=== PATIENT | male | born 1960 | race Caucasian/White ===

== ENCOUNTER 2017-04-10 07:37 | Inpatient (IN) | payer BC ==
[~2017-04-10] VITALS: Ht 182.9 cm; Wt 155.6 kg
[2017-04-10] VITALS (10 sets, daily range): BP systolic 128–163; BP diastolic 83–107; PULSE 86–105; TEMP 36.7–37; O2SAT 91–96; Ht 182.9 cm; Wt 155.6 kg
[~2017-04-10 07:37] MED LIST: ALBU1AER9 INH; HYDR-5688 PO; LISI-787 PO
[2017-04-10] MEDS ORDERED: ALBUT/IPRATROP 3MG/0.5MG NEB 3 ML VIAL INH STA (07:56)
[2017-04-10] MEDS ORDERED: SODIUM CHLORIDE 0.9% 1000ML 1,000 ML IV STA (07:56)
[2017-04-10] MEDS ORDERED: AZIT-57 PO (08:02)
--- NOTE | 2017-04-10 08:06 | EMERGENCY ROOM VISIT NOTE ---
History First contact with patient: 07:48 Chief Complaint: COUGH Stated Complaint: FEVER, COUGH, PNEUMONIA Nursing Triage Summary: patient states he has had cough and chest and nasal congestion x1 week. patient states he went to PCP yesterday. x ray done and patient was given a z davide. patient staets he woke up this AM with cough, chest tightness and SOB. hx asthma. patient used inhaler this AM with some relief. patient states he had a low grade fever yesterday. History of Present Illness The patient is a 57 year old male who presents to the Emergency Room with complaints of cough, shortness of breath and chest tightness for the past week. Patient states he started with flu-like symptoms a week ago with cough, congestion, fevers and chills, and some nausea/vomiting. He states his symptoms are getting worse, he saw his PCP yesterday where he had a chest x-ray done and was told he probably had pneumonia, was started on a Z-Davide. He has taken 2 doses of this. He states that he was unable to sleep well last night because every time he would try to lie flat he felt like his throat was closing off and he couldn't breathe, and then would start to have coughing fits and gagging. He states his chest tightness and pain has been getting worse, the pain is throughout, especially along his lower rib cage and worse with coughing , not worse with exertion or taking a deep breath, he has not taken any medications for the pain. Patient does report a history of asthma, which she states is usually triggered by allergies or illness, he has been using his albuterol inhaler with improvement, last use was at 7 AM today. He reports continued low-grade fevers of 99-100 yesterday and this morning. He denies any headaches, neck pain, back pain, dizziness or syncope, abdominal pain, nausea, vomiting, diarrhea, urinary complaints, leg pain or swelling, recent travel, rash. Review of Systems A complete 10 point review of systems was reviewed with the patient with pertinent positives and negatives as per history of present illness. All else were negative. Past Medical/Surgical History Medical Problems: (1) Ankle surgery (2) Asthma exacerbation (3) HTN (hypertension) (4) Nonunion of arthrodesis (5) Obesity (6) Osteoarthritis of subtalar joint (7) PNA (pneumonia) Social History Smoking Status: Former Smoker Drug Use: none Marital Status: Housing Status: lives with family Occupation Status: employed Current/Historical Medications Scheduled Azithromycin (Azithromycin), 1 TAB PO DAILY Lisinopril/Hctz (Zestoretic 20MG/12.5MG), 1 TAB PO QAM Scheduled PRN Hydrocodone/Acetaminophen 5MG/325MG ([place] 5MG/325MG), 1 TABLET PO TID PRN for Pain Allergies Reviewed in chart Physical Exam Vital Signs Date Time Temp Pulse Resp B/P (MAP) Pulse Ox O2 Delivery O2 Flow Rate FiO2 04/10/17 10:12 96 24 95 Nasal Cannula 2.0 04/10/17 09:42 106/82 04/10/17 09:37 96 14 95 04/10/17 09:31 158/115 04/10/17 09:07 98 18 95 04/10/17 09:01 148/79 04/10/17 08:37 108 21 142/89 04/10/17 08:25 91 Nasal Cannula 2.0 04/10/17 08:19 107 04/10/17 08:12 91 Room Air 04/10/17 07:44 36.8 122 152/86 91 Room Air Physical Exam CONSTITUTIONAL: Pleasant and cooperative, mild respiratory distress with labored breathing and slightly tachypneic, but able to speak in full sentences. Diaphoretic. HEENT: Normocephalic, atraumatic. Pupils equal, round and reactive to light, EOMI. TMs normal. Pharynx normal. Tacky mucous membranes. NECK: Supple, full active range of motion without discomfort. RESPIRATORY: Diminished throughout with no wheezing, crackles, rhonchi or stridor heard on auscultation. Labored breathing, but no accessory muscle use. Mild tachypnea. Equal expansion bilaterally. CARDIOVASCULAR: Regular rate and rhythm with no murmurs, rubs or gallops. Normal peripheral perfusion. No edema. GASTROINTESTINAL: Soft, nontender, nondistended, Obese. No palpable masses or HSM. Bowel sounds present in all quadrants. MUSCULOSKELETAL: Full range of motion of all joints without discomfort. No calf tenderness or swelling. INTEGUMENTARY: No rash or other significant dermatologic conditions noted. NEUROLOGIC: Alert and oriented X 4 with normal affect. Cranial nerves II-XII grossly intact. No focal neurologic deficits noted. Normal speech, normal gait observed. Medical Decision & Procedures ER Provider Diagnostic Interpretation: CHEST 2 VIEWS ROUTINE CLINICAL HISTORY: SOB, cough x 1 weeks, fevers, eval PNA. COMPARISON STUDY: Chest CT May 19, 2013 and chest radiograph September 20, 2013. FINDINGS: There is mild elevation of the right hemidiaphragm. Lung volumes are slightly diminished. There is no pneumothorax or pleural effusion. There is no evidence for pleural edema. Lateral view demonstrates opacity projecting over the thoracic spine. There is mild lower lung predominant reticulonodular interstitial thickening. Cardiac size is normal. Mediastinal contours are unremarkable. IMPRESSION: Lower lung predominant reticulonodular interstitial thickening with increased opacity projecting over the thoracic spine on lateral projection. The findings favor an infectious process such as bronchiolitis or bronchopneumonia. Radiographic follow up to ensure resolution is recommended. Laboratory Results 04/10/17 08:05 Red Blood Count 4.37, Mean Corpuscular Volume 92.0, Mean Corpuscular Hemoglobin 30.9, Mean Corpuscular Hemoglobin Concent 33.6, Mean Platelet Volume 11.7, Neutrophils (%) (Auto) 76.0, Lymphocytes (%) (Auto) 11.7, Monocytes (%) (Auto) 10.5, Eosinophils (%) (Auto) 1.3, Basophils (%) (Auto) 0.2, Neutrophils # (Auto ) 6.68, Lymphocytes # (Auto) 1.03, Monocytes # (Auto) 0.92, Eosinophils # (Auto ) 0.11, Basophils # (Auto) 0.02 04/10/17 08:05 Test 04/10/17 08:05 04/10/17 09:55 White Blood Count 8.79 K/uL (4.8-10.8) Red Blood Count 4.37 M/uL (4.7-6.1) Hemoglobin 13.5 g/dL (14.0-18.0) Hematocrit 40.2 % (42-52) Mean Corpuscular Volume 92.0 fL (80-100) Mean Corpuscular Hemoglobin 30.9 pg (25-34) Mean Corpuscular Hemoglobin Concent 33.6 g/dl (32-36) Platelet Count 134 K/uL (130-400) Mean Platelet Volume 11.7 fL (7.4-10.4) Neutrophils (%) (Auto) 76.0 % Lymphocytes (%) (Auto) 11.7 % Monocytes (%) (Auto) 10.5 % Eosinophils (%) (Auto) 1.3 % Basophils (%) (Auto) 0.2 % Neutrophils # (Auto) 6.68 K/uL (1.4-6.5) Lymphocytes # (Auto) 1.03 K/uL (1.2-3.4) Monocytes # (Auto) 0.92 K/uL (0.11-0.59) Eosinophils # (Auto) 0.11 K/uL (0-0.5) Basophils # (Auto) 0.02 K/uL (0-0.2) RDW Standard Deviation 45.3 fL (36.4-46.3) RDW Coefficient of Variation 13.4 % (11.5-14.5) Immature Granulocyte % (Auto) 0.3 % Immature Granulocyte # (Auto) 0.03 K/uL (0.00-0.02) Anion Gap 6.0 mmol/L (3-11) Est Creatinine Clear Calc Drug Dose 137.1 ml/min Estimated GFR () 106.6 Estimated GFR (Non- 92.0 BUN/Creatinine Ratio 15.0 (10-20) Calcium Level 8.7 mg/dl (8.5-10.1) Total Bilirubin 0.7 mg/dl (0.2-1) Aspartate Amino Transf (AST/SGOT) 16 U/L (15-37) Alanine Aminotransferase (ALT/SGPT) 29 U/L (12-78) Alkaline Phosphatase 55 U/L (45-117) Troponin I < 0.015 ng/ml (0-0.045) Total Protein 7.5 gm/dl (6.4-8.2) Albumin 3.5 gm/dl (3.4-5.0) Globulin 4.0 gm/dl (2.5-4.0) Albumin/Globulin Ratio 0.9 (0.9-2) Urine Color DK YELLOW Urine Appearance CLEAR (CLEAR) Urine pH 5.5 (4.5-7.5) Urine Specific [place] 1.027 (1.000-1.030) Urine Protein 1+ (NEG) Urine Glucose (UA) NEG (NEG) Urine Ketones NEG (NEG) Urine Occult Blood TRACE (NEG) Urine Nitrite NEG (NEG) Urine Bilirubin NEG (NEG) Urine Urobilinogen NEG (NEG) Urine Leukocyte Esterase TRACE (NEG) Urine WBC (Auto) 1-5 /hpf (0-5) Urine RBC (Auto) 0-4 /hpf (0-4) Urine Hyaline Casts (Auto) 1-5 /lpf (0-5) Urine Epithelial Cells (Auto) 10-20 /lpf (0-5) Urine Bacteria (Auto) NEG (NEG) Medications Administered Medications (Trade) Dose Ordered Sig/Senthil Route Start Time Stop Time Status Last Admin Dose Admin Albuterol/ Ipratropium (Duoneb) 3 ml NOW STAT INH 04/10/17 07:56 04/10/17 08:00 DC 04/10/17 07:56 3 ML Sodium Chloride 1,000 ml @ 999 mls/hr Q1H1M STAT IV 04/10/17 07:56 04/10/17 08:56 DC 04/10/17 07:56 999 MLS/HR Ceftriaxone Sodium (Rocephin Inj) 1 gm NOW STAT IV 04/10/17 09:42 04/10/17 09:45 DC 04/10/17 09:42 1 GM Methylprednisolone Sodium Succinate (Solu-Medrol IV) 125 mg NOW STAT IV 04/10/17 09:52 04/10/17 09:54 DC 04/10/17 10:00 125 MG Albuterol/ Ipratropium (Duoneb) 12 ml ONE ONCE INH 04/10/17 10:00 04/10/17 10:01 DC 04/10/17 10:12 12 ML Acetaminophen/ Hydrocodone Bitart ([place] 5/325 Tab) 1 tab NOW STAT PO 04/10/17 09:54 04/10/17 09:55 DC 04/10/17 10:01 1 TAB ECG Indication: chest pain, SOB/dyspnea Rate (beats per minute): 111 Rhythm: sinus tachycardia Findings: no acute ischemic change, no ectopy Change: no significant change (when compared to EKG from 04/13/2013) Medical Decision CC: Patient presenting with complaint of cough, shortness of breath, chest tightness Interpretation of Labs: No leukocytosis, mild anemia, no significant electrolyte abnormalities, normal renal function, normal liver enzymes. Normal coags. Negative troponin. UA appears contaminated, not suspicious for infection. Differential Diagnosis: Includes, but not limited to viral URI, bronchitis, pneumonia, pulmonary edema, pleural effusion, pneumothorax, PE, asthma/COPD exacerbation, CHF exacerbation, ACS, among others Medication Reconciliation: I attest that I have personally reviewed the patient' s current medication list. Vital signs review: I reviewed the patient's vital signs and interpret them as follows: T: Afebrile; BP: Hypertensive; HR: Tachycardic; RR: Tachypneic; Pulse Ox: Hypoxic on room air, placed on 2 L cannula and improved to 95%. Blood pressure screening: The patient was found to have an elevated blood pressure and was referred to the inpatient team for further treatment. Summary: Patient was evaluated at bedside, history and physical exam performed. Patient is alert and oriented, in no significant distress, but does appear mildly labored with his breathing. He is noted to be tachycardic, tachypneic, and hypoxic on initial vital signs. Patient noted to drop his oxygen saturation below 90% multiple times, his placed on nasal cannula with improvement. Lungs sounds on initial exam are diminished throughout, no wheezes, rhonchi, or crackles heard. EKG reviewed at bedside, sinus tachycardia with no acute ischemic changes noted. Orders were placed at bedside for labs, fluids for hydration, chest x-ray to evaluate for pneumonia. Patient discussed with Dr. Garcia, who agrees with my assessment and plan. Labs reviewed as above, no significant abnormalities. Chest x-ray consistent with pneumonia. Reassessed the patient after DuoNeb, he is moving better air and now has diffuse expiratory wheezing. He still reports shortness of breath. Nursing has also reported some episodes of hypoxia down to 88% on room air, he was placed on 2 L nasal cannula. IV Solu-Medrol and hour-long DuoNeb for continued treatment of suspected asthma/ COPD exacerbation secondary to the pneumonia. IV Rocephin ordered for additional coverage of community acquired pneumonia. I spoke over the phone with Dr. Espinoza, hospitalist, who agrees to evaluate patient for admission. Patient reassessed multiple times throughout ED stay, he is feeling slightly improved after nebulizer treatments and being placed on oxygen, his sats are now 94-95%. I discussed all results and plan for admission for further treatment, the patient was agreeable to this plan. Patient stable at time of admission. Head Trauma GCS Score: 15 Medication Reconcilliation Current Medication List: was personally reviewed by me Blood Pressure Screening Patient's blood pressure: Elevated blood pressure Impression Primary Impression: Community acquired pneumonia Additional Impression: Hypoxia Departure Information Dispostion Admitted as an inpatient Condition FAIR Referrals Spencer Teague M.D. (PCP) Patient Instructions My [facility] Problem Qualifiers Primary Impression: Community acquired pneumonia Laterality: unspecified laterality Qualified Codes: J18.9 - Pneumonia, unspecified organism
[2017-04-10 08:25] LABS: BASO % 0.2 %; BASO ABS # 0.02 K/uL (0-0.2); COMPLETE YES; EOS % 1.3 %; HEMATOCRIT 40.2 % (42-52); IG% 0.3 %; LYMPH % 11.7 %; LYMPH ABS # 1.03 K/uL (1.2-3.4); MEAN CORPUSCULAR HEMOGLOBIN 30.9 pg (25-34); MEAN CORPUSCULAR HGB CONC 33.6 g/dl (32-36); MEAN PLATELET VOLUME 11.7 fL (7.4-10.4); MONO % 10.5 %; PLATELET COUNT 134 K/uL (130-400); RED BLOOD COUNT 4.37 M/uL (4.7-6.1); WHITE BLOOD COUNT 8.79 K/uL (4.8-10.8)
[2017-04-10 08:42] LABS: ALT/SGPT 29 U/L (12-78); BLOOD UREA NITROGEN 14 mg/dl (7-18); CALCIUM 8.7 mg/dl (8.5-10.1); CARBON DIOXIDE 28 mmol/L (21-32); CHLORIDE 102 mmol/L (98-107); CREATININE 0.92 mg/dl (0.60-1.40); GLUCOSE 140 mg/dl (70-99); POTASSIUM 3.6 mmol/L (3.5-5.1); SODIUM 136 mmol/L (136-145)
--- NOTE | 2017-04-10 08:43 | DIAGNOSTIC IMAGING REPORT ---
CHEST 2 VIEWS ROUTINE CLINICAL HISTORY: SOB, cough x 1 weeks, fevers, eval PNA. COMPARISON STUDY: Chest CT May 19, 2013 and chest radiograph September 20, 2013. FINDINGS: There is mild elevation of the right hemidiaphragm. Lung volumes are slightly diminished. There is no pneumothorax or pleural effusion. There is no evidence for pleural edema. Lateral view demonstrates opacity projecting over the thoracic spine. There is mild lower lung predominant reticulonodular interstitial thickening. Cardiac size is normal. Mediastinal contours are unremarkable. IMPRESSION: Lower lung predominant reticulonodular interstitial thickening with increased opacity projecting over the thoracic spine on lateral projection. The findings favor an infectious process such as bronchiolitis or bronchopneumonia. Radiographic follow up to ensure resolution is recommended. Electronically signed by: Jayson Munoz M.D. 04/10/2017 8:42 AM Dictated Date/Time: 04/10/2017 8:35 AM
[2017-04-10 08:47] LABS: ALB/GLOB RATIO 0.9 (0.9-2); ALKALINE PHOSPHATASE 55 U/L (45-117); AST/SGOT 16 U/L (15-37)
[2017-04-10] MEDS ORDERED: CEFTRIAXONE SOD INJ 1 GM ADDVIAL IV STA (09:42)
[2017-04-10] MEDS ORDERED: METHYLPREDNISOLONE 125 MG VIAL IV STA (09:52)
[2017-04-10] MEDS ORDERED: HYDROCODONE/ACETAMOPHEN 5/325MG TAB PO STA (09:54)
[2017-04-10] MEDS ORDERED: ALBUT/IPRATROP 3MG/0.5MG NEB 3 ML VIAL INH ONE (10:00)
[2017-04-10 10:19] LABS: URINE APPEARANCE CLEAR (CLEAR); URINE COLOR DK YELLOW; URINE NITRITE NEG (NEG); URINE PH 5.5 (4.5-7.5); URINE SPECIFIC GRAVITY 1.027 (1.000-1.030); UROBILINOGEN NEG (NEG)
[2017-04-10 10:22] LABS: MANUAL MICROSCOPIC REQUIRED? NO; REVIEW REQ? NO
[2017-04-10 10:23] LABS: URINE BILIRUBIN NEG (NEG)
[2017-04-10] MEDS ORDERED: ONDANSETRON INJ 2 MG/ML 2 ML VIAL IV PRN (10:45)
[2017-04-10] MEDS ORDERED: ACETAMINOPHEN 325 MG TAB PO PRN (10:45)
[2017-04-10] MEDS ORDERED: SODIUM CHLORIDE 0.9% 1000ML 1,000 ML IV SCH (11:00)
[2017-04-10 13:20] LABS: PROTHROMBIN TIME (PATIENT) 10.6 SECONDS (9.0-12.0)
[2017-04-10] MEDS: AZITHROMYCIN IV 500 MG in DEXTROSE 5% 250ML 250 ML IV SCH (13:42)
[2017-04-10] MEDS: LISINOPRIL/HCTZ 20/12.5MG TAB PO SCH (13:42)
[2017-04-10] MEDS: LEVALBUTEROL 1.25MG/0.5ML NEB INH SCH ×2 (15:00→19:32)
[2017-04-10] MEDS: IPRATROPIUM BROMIDE NEB SOLN 0.02% 2.5 ML VIAL INH SCH ×2 (15:00→19:32)
[2017-04-10] MEDS ORDERED: LEVALBUTEROL/IPRATROPIUM NEB INH SCH (15:00)
[2017-04-10] MEDS ORDERED: HYDROCODONE/ACETAMOPHEN 5/325MG TAB ONE (16:41)
[2017-04-10] MEDS: ENOXAPARIN 40 MG/0.4 ML SYR SC SCH (16:44)
[2017-04-10] MEDS: METHYLPREDNISOLONE IV 40 MG in SYRINGE 0 ML IV SCH (17:31)
--- NOTE | 2017-04-10 18:17 | History and Physical ---
History & Physical Date & Time of Service: Apr 10, 2017 at 11:00 Chief Complaint: Asthma Exacerbation, Pna Primary Care Physician: Spencer Teague M.D. History of Present Illness Source: patient, clinic records, hospital records This is a 57yo M with a PMH of asthma, HTN, chronic back pain who presents with worsening SOB x 1 week. Last week, patient started to have rhinorrhea, nasal congestion and some SOB but it has progressed throughout the week. Is associated with a productive cough with yellow sputum and a low grade fever. Patient has a history of asthma but states that he only needs his inhaler when he has a URI or allergy triggers. Is currently SOB at rest. Went to see PCP yesterday and was diagnosed with CAP and started on a Z-pack. [place] significantly more SOB this morning and came to ED for further evaluation. Was found to have an O2 saturation of 88% upon arrival but now in high 90s on 2L NC. Does not require O2 at home. Former smoker who quit 4 months ago. + sick contacts. Denies history of CHF. Past Medical/Surgical History Medical Problems: (1) HTN (hypertension) Status: Chronic (2) Obesity Status: Chronic (3) Osteoarthritis of subtalar joint Status: Resolved Family History Non-contributory Social History Smoking Status: Former Smoker (quit 4 mo ago) Alcohol Use: socially Drug Use: none Marital Status: Occupational Status: employed Multi-Drug Resistant Organisms History of MDRO: No Allergies Coded Allergies: Morphine (Unverified Allergy, Unknown, HEADACHE, 09/07/15) Home Medications Scheduled Azithromycin (Azithromycin), 500 MG PO QAM Lisinopril/Hctz (Zestoretic 20MG/12.5MG), 1 TAB PO QAM Prednisone (Prednisone), 20 MG PO UD Scheduled PRN Hydrocodone/Acetaminophen 5MG/325MG ([place] 5MG/325MG), 1 TABLET PO TID PRN for Pain Review of Systems Ten systems reviewed and negative except as noted in the HPI. Physical Exam Vital Signs Date Time Temp Pulse Resp B/P (MAP) Pulse Ox O2 Delivery O2 Flow Rate FiO2 04/10/17 16:16 93 Nasal Cannula 2.0 04/10/17 15:33 94 20 93 Nasal Cannula 2.0 04/10/17 14:47 37.0 86 18 128/83 (98) 93 Nasal Cannula 2.0 04/10/17 12:00 93 Nasal Cannula 2.0 04/10/17 11:48 37.0 105 16 156/88 93 Nasal Cannula 2.0 04/10/17 11:09 92 20 125/79 99 Nebulizer 8.0 04/10/17 10:12 96 24 95 Nasal Cannula 2.0 04/10/17 09:42 106/82 04/10/17 09:37 96 14 95 04/10/17 09:31 158/115 04/10/17 09:07 98 18 95 04/10/17 09:01 148/79 04/10/17 08:37 108 21 142/89 04/10/17 08:25 91 Nasal Cannula 2.0 04/10/17 08:19 107 04/10/17 08:12 91 Room Air 04/10/17 07:44 36.8 122 152/86 91 Room Air General Appearance: + mild distress, + obese, + pertinent finding (breathing comfortably on NC O2) Eyes: normal inspection, PERRL, sclerae normal ENT: pharynx normal (zoran mucous membrane ), + nasal congestion Neck: supple, no JVD, trachea midline Respiratory/Chest: chest non-tender, no respiratory distress, no accessory muscle use, + crackles (bibasilar crackles ), + wheezing (Diffuse expiratory wheezes) Cardiovascular: regular rate, rhythm, no murmur, normal peripheral pulses Abdomen/GI: non tender, soft, no organomegaly Extremities/Musculoskelatal: normal inspection, no calf tenderness, no pedal edema Neurologic/Psych: no motor/sensory deficits, alert, normal mood/affect, oriented x 3 Skin: normal color, warm/dry Diagnostics Laboratory Results Results Past 24 Hours Test 04/10/17 08:05 04/10/17 09:55 04/10/17 12:44 Range/Units White Blood Count 8.79 4.8-10.8 K/uL Red Blood Count 4.37 4.7-6.1 M/uL Hemoglobin 13.5 14.0-18.0 g/dL Hematocrit 40.2 42-52 % Mean Corpuscular Volume 92.0 80-100 fL Mean Corpuscular Hemoglobin 30.9 25-34 pg Mean Corpuscular Hemoglobin Concent 33.6 32-36 g/dl Platelet Count 134 130-400 K/uL Mean Platelet Volume 11.7 7.4-10.4 fL Neutrophils (%) (Auto) 76.0 % Lymphocytes (%) (Auto) 11.7 % Monocytes (%) (Auto) 10.5 % Eosinophils (%) (Auto) 1.3 % Basophils (%) (Auto) 0.2 % Neutrophils # (Auto) 6.68 1.4-6.5 K/uL Lymphocytes # (Auto) 1.03 1.2-3.4 K/uL Monocytes # (Auto) 0.92 0.11-0.59 K/uL Eosinophils # (Auto) 0.11 0-0.5 K/uL Basophils # (Auto) 0.02 0-0.2 K/uL RDW Standard Deviation 45.3 36.4-46.3 fL RDW Coefficient of Variation 13.4 11.5-14.5 % Immature Granulocyte % (Auto) 0.3 % Immature Granulocyte # (Auto) 0.03 0.00-0.02 K/uL Sodium Level 136 136-145 mmol/L Potassium Level 3.6 3.5-5.1 mmol/L Chloride Level 102 98-107 mmol/L Carbon Dioxide Level 28 21-32 mmol/L Anion Gap 6.0 3-11 mmol/L Blood Urea Nitrogen 14 7-18 mg/dl Creatinine 0.92 0.60-1.40 mg/dl Est Creatinine Clear Calc Drug Dose 137.1 ml/min Estimated GFR () 106.6 Estimated GFR (Non- 92.0 BUN/Creatinine Ratio 15.0 10-20 Random Glucose 140 70-99 mg/dl Calcium Level 8.7 8.5-10.1 mg/dl Total Bilirubin 0.7 0.2-1 mg/dl Aspartate Amino Transf (AST/SGOT) 16 15-37 U/L Alanine Aminotransferase (ALT/SGPT) 29 12-78 U/L Alkaline Phosphatase 55 45-117 U/L Troponin I < 0.015 0-0.045 ng/ml Total Protein 7.5 6.4-8.2 gm/dl Albumin 3.5 3.4-5.0 gm/dl Globulin 4.0 2.5-4.0 gm/dl Albumin/Globulin Ratio 0.9 0.9-2 Urine Color DK YELLOW Urine Appearance CLEAR CLEAR Urine pH 5.5 4.5-7.5 Urine Specific [place] 1.027 1.000-1.030 Urine Protein 1+ NEG Urine Glucose (UA) NEG NEG Urine Ketones NEG NEG Urine Occult Blood TRACE NEG Urine Nitrite NEG NEG Urine Bilirubin NEG NEG Urine Urobilinogen NEG NEG Urine Leukocyte Esterase TRACE NEG Urine WBC (Auto) 1-5 0-5 /hpf Urine RBC (Auto) 0-4 0-4 /hpf Urine Hyaline Casts (Auto) 1-5 0-5 /lpf Urine Epithelial Cells (Auto) 10-20 0-5 /lpf Urine Bacteria (Auto) NEG NEG Prothrombin Time 10.6 9.0-12.0 SECONDS Prothromb Time International Ratio 1.0 0.9-1.1 Microbiology Results 04/10/17 Blood Culture, Received Pending 04/10/17 Blood Culture, Received Pending Diagnostic Radiology CXR: IMPRESSION: Lower lung predominant reticulonodular interstitial thickening with increased opacity projecting over the thoracic spine on lateral projection. The findings favor an infectious process such as bronchiolitis or bronchopneumonia. Radiographic follow up to ensure resolution is recommended. EKG Sinus tachycardia Otherwise normal ECG Impression Assessment and Plan This is a 57yo M with a PMH of asthma, HTN, chronic back pain who presents with worsening SOB x 1 week. Acute hypoxic respiratory failure: -2/2 CAP and asthma -Requiring 2L [place] O2 now, no home O2 -O2 supplementation -Monitor on tele CAP, asthma exacerbation: -SOB, productive cough, +sick contacts -Expiratory wheezes, bibasilar crackles on lung exam -Leukocytosis of 13.5 -CXR with increased lower lung opacity over the thoracic spine on lateral projection -Rocephin, azithromycin -IV solu-medrol 40mg Q8 -Xopenex nebs -IVF resuscitation HTN: -Cont home dose lisinopril/hctz -Low Na diet Degenerative disc disease, chronic back pain: -Has pain mgmt agreement with PCP -Continue home vicodin DVT Ppx: Lovenox Code status: FULL PCP: [facility] Dispo: Plan to return home once medically stable Patient seen in collaboration with Dr. Portillo. Please see addendum. Attending Addendum Pt was seen and examined. Agreed with Hilda CONWAY exam, assessment and plan. 57yo M with a PMH of asthma, HTN, chronic back pain who presents with worsening SOB. CXR done in the ER showed lower lung predominant reticulonodular interstitial thickening with increased opacity projecting over the thoracic spine on lateral projection. Will starting on rocephin and zithromax. will get blood cx and sputum cx and check for flu. continue monitor CBC. Please refer to [facility] CONWAY documentation for other problems. Klever Portillo MD Level of Care Telemetry Advanced Directives Existing Living Will: No Existing Power of Drying Oven Attendant: No Resuscitation Status FULL RESUSCITATION VTE Prophylaxis VTE Risk Assessment Done? Y/N: Yes Risk Level: Low Given or contraindicated: Enoxaparin (Lovenox)SQ Social Service Consult None Apply
[2017-04-10] MEDS: HYDROCODONE/ACETAMOPHEN 5/325MG TAB PO PRN (23:27)
[2017-04-11] VITALS (14 sets, daily range): BP systolic 127–165; BP diastolic 74–109; PULSE 82–103; TEMP 36.5–37.1; O2SAT 91–95
[2017-04-11] MEDS ORDERED: CLONIDINE HCL 0.1 MG TAB PO PRN (00:30)
[2017-04-11] MEDS: ZOLPIDEM TARTRATE 5 MG TAB PO PRN ×2 (00:49→23:26)
[2017-04-11] MEDS: METHYLPREDNISOLONE IV 40 MG in SYRINGE 0 ML IV SCH ×3 (00:49→18:27)
[2017-04-11] MEDS: IPRATROPIUM BROMIDE NEB SOLN 0.02% 2.5 ML VIAL INH SCH ×3 (01:31→14:03)
[2017-04-11] MEDS: LEVALBUTEROL 1.25MG/0.5ML NEB INH SCH ×3 (01:31→14:03)
[2017-04-11 06:21] LABS: HEMATOCRIT 40.4 % (42-52); MEAN CELL VOLUME 91.8 fL (80-100); MEAN CORPUSCULAR HEMOGLOBIN 30.9 pg (25-34); MEAN CORPUSCULAR HGB CONC 33.7 g/dl (32-36); MEAN PLATELET VOLUME 11.9 fL (7.4-10.4); PLATELET COUNT 181 K/uL (130-400); WHITE BLOOD COUNT 13.13 K/uL (4.8-10.8)
[2017-04-11 07:05] LABS: BUN/CREATININE RATIO 20.6 (10-20); CALCIUM 8.6 mg/dl (8.5-10.1); CREATININE 0.87 mg/dl (0.60-1.40); POTASSIUM 3.8 mmol/L (3.5-5.1)
[2017-04-11] MEDS: LISINOPRIL/HCTZ 20/12.5MG TAB PO SCH (07:40)
[2017-04-11] MEDS: HYDROCODONE/ACETAMOPHEN 5/325MG TAB PO PRN ×3 (07:41→22:19)
[2017-04-11 07:52] LABS: ESTIMATED AVERAGE GLUCOSE 114 mg/dl; HA1C FLAG Normal (Normal)
[2017-04-11] MEDS ORDERED: NURSING VERBAL MED ORDER ONE (10:15)
--- NOTE | 2017-04-11 10:24 | Progress Note ---
Medicine Progress Note Date & Time of Visit: Apr 11, 2017 at 10:05. Subjective Pt was seen and examined Sitting in bed with no distress Pt said that he is feeling much better today He said that his breathing feels much better Pt wants to go home today Denies any chest pain, palpitation and Dizziness Objective Last 8 Hrs Date Time Temp Pulse Resp B/P (MAP) Pulse Ox O2 Delivery O2 Flow Rate FiO2 04/11/17 09:20 94 Room Air 04/11/17 07:08 37.1 82 20 127/74 (91) 95 Room Air 04/11/17 07:05 82 18 93 Room Air 04/11/17 04:31 36.6 97 18 165/109 (127) 91 Room Air 04/11/17 04:00 93 Nasal Cannula 2.0 Physical Exam: General- No acute distress Head- atraumatic Eyes- PERRL, EOMI ENT- oropharynx clear Neck- supple, no JVD Lungs- Coarse BS Heart- regular rhythm Abdomen- normal bowel sounds, soft Extremities- no calf tenderness Neuro- alert, oriented x 3; PERRL, EOMI; no facial palsy Skin- warm & dry Laboratory Results: Last 24 Hours Test 04/10/17 12:44 04/11/17 05:31 Prothrombin Time 10.6 SECONDS Prothromb Time International Ratio 1.0 White Blood Count 13.13 K/uL Red Blood Count 4.40 M/uL Hemoglobin 13.6 g/dL Hematocrit 40.4 % Mean Corpuscular Volume 91.8 fL Mean Corpuscular Hemoglobin 30.9 pg Mean Corpuscular Hemoglobin Concent 33.7 g/dl RDW Standard Deviation 44.9 fL RDW Coefficient of Variation 13.3 % Platelet Count 181 K/uL Mean Platelet Volume 11.9 fL Sodium Level 137 mmol/L Potassium Level 3.8 mmol/L Chloride Level 103 mmol/L Carbon Dioxide Level 27 mmol/L Anion Gap 7.0 mmol/L Blood Urea Nitrogen 18 mg/dl Creatinine 0.87 mg/dl Est Creatinine Clear Calc Drug Dose 144.2 ml/min Estimated GFR () 111.0 Estimated GFR (Non- 95.8 BUN/Creatinine Ratio 20.6 Random Glucose 188 mg/dl Estimated Average Glucose 114 mg/dl Hemoglobin A1c 5.6 % Calcium Level 8.6 mg/dl Date/Time Source Procedure Growth Status 04/10/17 11:14 Blood Blood Culture Pending Received 04/10/17 11:09 Blood Blood Culture Pending Received Assessment & Plan Acute hypoxic respiratory failure Possible related to CAP and asthma CXR showed lower lung predominant reticulonodular interstitial thickening with increased opacity projecting over the thoracic spine on lateral projection On IV rocephin and Zithromax Continue supplement O2 Continue monitor solumedrol IV 40mg q8h Continue breathing treatment Continue monitor HTN: Cont home dose lisinopril/hctz Continue monitor BP Degenerative disc disease, chronic back pain: Has pain mgmt agreement with PCP Continue home vicodin DVT Ppx: Lovenox Code status: FULL Current Inpatient Medications: Current Inpatient Medications Medications (Trade) Dose Ordered Sig/Senthil Route Start Time Stop Time Status Last Admin Dose Admin Enoxaparin Sodium (Lovenox Inj) 40 mg Q24H SC 04/10/17 16:00 05/10/17 15:59 04/10/17 16:44 40 MG Acetaminophen (Tylenol Tab) 650 mg Q4H PRN PO 04/10/17 10:45 05/10/17 10:44 Ondansetron HCl (Zofran Inj) 4 mg Q6H PRN IV 04/10/17 10:45 05/10/17 10:44 Ceftriaxone Sodium 2000 mg/ Dextrose 70 ml @ 100 mls/hr Q24H IV 04/11/17 18:00 04/18/17 17:59 Azithromycin 500 mg/Dextrose 255 ml @ 250 mls/hr Q24H IV 04/10/17 13:00 04/15/17 12:59 04/10/17 13:42 250 MLS/HR Methylprednisolone Sodium Succinate 40 mg/Syringe 0.64 ml @ 1.5 mls/min Q8H IV 04/10/17 18:00 05/10/17 17:59 04/11/17 09:36 1.5 MLS/MIN Acetaminophen/ Hydrocodone Bitart ([place] 5/325 Tab) 1 tab TID PRN PO 04/10/17 18:00 04/24/17 17:59 04/11/17 07:41 1 TAB HCTZ/Lisinopril (Prinzide 20-12.5MG Tab) 1 tab QAM PO 04/10/17 11:00 05/10/17 10:59 12/21/17 07:40 1 TAB Ipratropium [place] (Atrovent 0.02% 0.5MG/2.5ML Neb) 0.5 mg Q6R INH 04/10/17 15:00 05/10/17 14:59 04/11/17 07:02 0.5 MG Levalbuterol (Xopenex 1.25MG/ 0.5ML Neb) 1.25 mg Q6R INH 04/10/17 15:00 05/10/17 14:59 04/11/17 07:02 1.25 MG Zolpidem Tartrate (Ambien Tab) 5 mg HS PRN PO 04/11/17 00:15 05/11/17 00:14 04/11/17 00:49 5 MG Clonidine HCl (Catapres Tab) 0.1 mg Q4H PRN PO 04/11/17 00:30 05/11/17 00:29 04/11/17 00:49 0.1 MG
[2017-04-11] MEDS: CEFTRIAXONE SOD INJ 1 GM in DEXTROSE 5% ADD-VANTAGE 50ML 50 ML IV SCH (10:34)
[2017-04-11] MEDS: AZITHROMYCIN IV 500 MG in DEXTROSE 5% 250ML 250 ML IV SCH (13:02)
[2017-04-11] MEDS: ENOXAPARIN 40 MG/0.4 ML SYR SC SCH (16:14)
[2017-04-11] MEDS ORDERED: CEFTRIAXONE SOD INJ 2,000 MG in DEXTROSE 5% 50ML 50 ML IV SCH (18:00)
[2017-04-12] MEDS: METHYLPREDNISOLONE IV 40 MG in SYRINGE 0 ML IV SCH ×2 (02:21→09:35)
[2017-04-12] MEDS: HYDROCODONE/ACETAMOPHEN 5/325MG TAB PO PRN (06:39)
[2017-04-12 07:59] VITALS: BP 135/83; PULSE 80; TEMP 36.6; O2SAT 93
[2017-04-12] MEDS: LISINOPRIL/HCTZ 20/12.5MG TAB PO SCH (08:24)
[2017-04-12] MEDS: CEFTRIAXONE SOD INJ 1 GM in DEXTROSE 5% ADD-VANTAGE 50ML 50 ML IV SCH (09:35)
[2017-04-12] MEDS ORDERED: AZITHROMYCIN 250 MG TAB PO ONE (11:25)
--- NOTE | 2017-04-12 11:40 | Progress Note ---
Medicine Progress Note Date & Time of Visit: Apr 12, 2017 at 11:27. Subjective Pt was seen and examined Sitting in chair with no distress Pt said that he feels much better today He said that his breathing feels better Pt said that he is ready to go home Denies any chest pain, palpitation, dizziness and SOB Objective Last 8 Hrs Date Time Temp Pulse Resp B/P (MAP) Pulse Ox O2 Delivery O2 Flow Rate FiO2 04/12/17 08:00 Room Air 04/12/17 07:59 36.6 80 18 135/83 (100) 93 Room Air Physical Exam: General- No acute distress Head- atraumatic Eyes- PERRL, EOMI ENT- oropharynx clear Neck- supple, no JVD Lungs- No wheezing Heart- regular rhythm Abdomen- normal bowel sounds, soft Extremities- no calf tenderness Neuro- alert, oriented x 3; PERRL, EOMI; no facial palsy Skin- warm & dry Assessment & Plan Acute hypoxic respiratory failure Possible related to CAP and asthma CXR showed lower lung predominant reticulonodular interstitial thickening with increased opacity projecting over the thoracic spine on lateral projection On IV Rocephin day 3 Received 2 days of IV Zithromax, then changed to oral Zithromax today Continue supplement O2 Will change solumedrol to oral prednisone blood cx no growth Refused flu test Sputum cx pending Continue breathing treatment Continue monitor HTN: Cont home dose lisinopril/hctz Continue monitor BP Degenerative disc disease, chronic back pain: Has pain mgmt agreement with PCP Continue home vicodin DVT Ppx: Lovenox Code status: FULL Disposition Follow up with your primary care provider Dr. Teague on 04/18 @ 12:30 PM Current Inpatient Medications: Current Inpatient Medications Medications (Trade) Dose Ordered Sig/Senthil Route Start Time Stop Time Status Last Admin Dose Admin Enoxaparin Sodium (Lovenox Inj) 40 mg Q24H SC 04/10/17 16:00 05/10/17 15:59 04/11/17 16:14 40 MG Acetaminophen (Tylenol Tab) 650 mg Q4H PRN PO 04/10/17 10:45 05/10/17 10:44 Ondansetron HCl (Zofran Inj) 4 mg Q6H PRN IV 04/10/17 10:45 05/10/17 10:44 Azithromycin 500 mg/Dextrose 255 ml @ 250 mls/hr Q24H IV 04/10/17 13:00 04/15/17 12:59 04/11/17 13:02 250 MLS/HR Methylprednisolone Sodium Succinate 40 mg/Syringe 0.64 ml @ 1.5 mls/min Q8H IV 04/10/17 18:00 05/10/17 17:59 04/12/17 09:35 1.5 MLS/MIN Acetaminophen/ Hydrocodone Bitart ([place] 5/325 Tab) 1 tab TID PRN PO 04/10/17 18:00 04/24/17 17:59 04/12/17 06:39 1 TAB HCTZ/Lisinopril (Prinzide 20-12.5MG Tab) 1 tab QAM PO 04/10/17 11:00 05/10/17 10:59 04/12/17 08:24 1 TAB Ipratropium [place] (Atrovent 0.02% 0.5MG/2.5ML Neb) 0.5 mg Q6R INH 04/10/17 15:00 05/10/17 14:59 04/11/17 14:03 0.5 MG Levalbuterol (Xopenex 1.25MG/ 0.5ML Neb) 1.25 mg Q6R INH 04/10/17 15:00 05/10/17 14:59 04/11/17 14:03 1.25 MG Zolpidem Tartrate (Ambien Tab) 5 mg HS PRN PO 04/11/17 00:15 05/11/17 00:14 04/11/17 23:26 5 MG Clonidine HCl (Catapres Tab) 0.1 mg Q4H PRN PO 04/11/17 00:30 05/11/17 00:29 04/11/17 00:49 0.1 MG Ceftriaxone Sodium 1 gm/ Dextrose 50 ml @ 100 mls/hr Q24H IV 04/11/17 10:15 04/18/17 10:14 04/12/17 09:35 100 MLS/HR
--- NOTE | 2017-04-12 11:52 | Discharge Instructions ---
Discharge Instructions Date of Service Apr 12, 2017. Admission Reason for Admission: Asthma Exacerbation, Pna Discharge Discharge Diagnosis / Problem: Acute hypoxic respiratory failure, Pneumonia, asthma Discharge Goals Goal(s): Decrease discomfort, Improve function, Improve disease control Activity Recommendations Activity Limitations: resume your previous activity (as tolerated) . Instructions / Follow-Up Instructions / Follow-Up Follow up with your primary care provider Dr. Teague on 04/18 @ 12:30 Complete antibiotic course Continue prednisone taper Final sputum culture pending ( will call you if there is any bacteria growth) Current Hospital Diet Patient's current hospital diet: Low Sodium Diet (2gm Na) Discharge Diet Recommended Diet: Low Sodium Diet (2gm Na) Pending Studies Studies pending at discharge: yes (Sputum culture) List of pending studies: Sputum cx Laboratory Results Hemoglobin A1c Test 04/11/17 05:31 Range/Units Estimated Average Glucose 114 mg/dl Hemoglobin A1c 5.6 4.5-5.6 % Medical Emergencies . Who to Call and When: Medical Emergencies: If at any time you feel your situation is an emergency, please call 911 immediately. . Non-Emergent Contact Non-Emergency issues call your: Primary Care Provider Call Non-Emergent contact if: you have a fever, you have any medication questions . . "Provider Documentation" section prepared by Klever Portillo. . VTE Core Measure Inpt VTE Proph given/why not?: Enoxaparin (Lovenox)SQ
[2017-04-12] MEDS ORDERED: PRD20 PO (12:05)
[2017-04-12] MEDS ORDERED: AZIT-57 PO (12:05)
[2017-04-12 12:16] VITALS: BP 147/82; PULSE 80; TEMP 36.6; O2SAT 93
[2017-04-13] MEDS ORDERED: AZITHROMYCIN 250 MG TAB PO SCH (09:00)
--- NOTE | 2017-04-14 17:45 | Discharge Summary ---
Discharge Summary Date of Service Apr 14, 2017. Discharge Summary Admission Date: Apr 10, 2017 at 10:43 Discharge Date: Apr 12, 2017 Discharge Disposition: Home Principal Diagnosis: Acute hypoxic respiratory failure Secondary Diagnoses/Problems: Pneumonia Asthma Degenerative disc disease, chronic back pain HTN Procedures: CHEST 2 VIEWS ROUTINE CLINICAL HISTORY: SOB, cough x 1 weeks, fevers, eval PNA. COMPARISON STUDY: Chest CT May 19, 2013 and chest radiograph September 20, 2013. FINDINGS: There is mild elevation of the right hemidiaphragm. Lung volumes are slightly diminished. There is no pneumothorax or pleural effusion. There is no evidence for pleural edema. Lateral view demonstrates opacity projecting over the thoracic spine. There is mild lower lung predominant reticulonodular interstitial thickening. Cardiac size is normal. Mediastinal contours are unremarkable. IMPRESSION: Lower lung predominant reticulonodular interstitial thickening with increased opacity projecting over the thoracic spine on lateral projection. The findings favor an infectious process such as bronchiolitis or bronchopneumonia. Radiographic follow up to ensure resolution is recommended. Electronically signed by: Jayson Munoz M.D. 04/10/2017 8:42 AM Dictated Date/Time: 04/10/2017 8:35 AM Medication Reconciliation New Medications: Prednisone (Prednisone) 20 Mg Tab 20 MG PO UD for 5 Days Take 40mg for 2 days, then 20mg for 3 days. Azithromycin (Azithromycin) 250 Mg Tab 500 MG PO QAM for 2 Days, #4 TAB Continued Medications: Hydrocodone/Acetaminophen 5MG/325MG ([place] 5MG/325MG) Tab 1 TABLET PO TID PRN for Pain, TAB PRN PAIN Lisinopril/Hctz (Zestoretic 20MG/12.5MG) Tab 1 TAB PO QAM, TAB Discontinued Medications: Azithromycin (Azithromycin) 250 Mg Tab 1 TAB PO DAILY PT STARTED 04/09/17. TAKE 2 TABS X DAY 1 TAKE 1 TAB DAILY UNTIL FINISHED Admission Information HPI (per Admitting provider): This is a 57yo M with a PMH of asthma, HTN, chronic back pain who presents with worsening SOB x 1 week. Last week, patient started to have rhinorrhea, nasal congestion and some SOB but it has progressed throughout the week. Is associated with a productive cough with yellow sputum and a low grade fever. Patient has a history of asthma but states that he only needs his inhaler when he has a URI or allergy triggers. Is currently SOB at rest. Went to see PCP yesterday and was diagnosed with CAP and started on a Z-pack. [place] significantly more SOB this morning and came to ED for further evaluation. Was found to have an O2 saturation of 88% upon arrival but now in high 90s on 2L NC. Does not require O2 at home. Former smoker who quit 4 months ago. + sick contacts. Denies history of CHF. Physical Exam (per Admitting): General Appearance: + mild distress, + obese, + pertinent finding ( breathing comfortably on NC O2) Eyes: normal inspection, PERRL, sclerae normal ENT: pharynx normal (zoran mucous membrane ), + nasal congestion Neck: supple, no JVD, trachea midline Respiratory/Chest: chest non-tender, no respiratory distress, no accessory muscle use, + crackles (bibasilar crackles ), + wheezing (Diffuse expiratory wheezes) Cardiovascular: regular rate, rhythm, no murmur, normal peripheral pulses Abdomen/GI: non tender, soft, no organomegaly Extremities/Musculoskelatal: normal inspection, no calf tenderness, no pedal edema Neurologic/Psych: no motor/sensory deficits, alert, normal mood/affect, oriented x 3 Skin: normal color, warm/dry Hospital Course Acute hypoxic respiratory failure Possible related to CAP and asthma CXR showed lower lung predominant reticulonodular interstitial thickening with increased opacity projecting over the thoracic spine on lateral projection On IV Rocephin day 3 Received 2 days of IV Zithromax, then changed to oral Zithromax today Continue supplement O2 Will change solumedrol to oral prednisone blood cx no growth Sputum cx pending Continue breathing treatment Continue monitor HTN: Cont home dose lisinopril/hctz Continue monitor BP Degenerative disc disease, chronic back pain: Has pain mgmt agreement with PCP Continue home vicodin DVT Ppx: Lovenox Code status: FULL Disposition Follow up with your primary care provider Dr. Teague on 04/18 @ 12:30 PM Total time spent on discharge = 35 minutes This includes examination of the patient, discharge planning, medication reconciliation, and communication with other providers. Discharge Instructions Discharge Instructions Date of Service Apr 12, 2017. Admission Reason for Admission: Asthma Exacerbation, Pna Discharge Discharge Diagnosis / Problem: Acute hypoxic respiratory failure, Pneumonia, asthma Discharge Goals Goal(s): Decrease discomfort, Improve function, Improve disease control Activity Recommendations Activity Limitations: resume your previous activity (as tolerated) . Instructions / Follow-Up Instructions / Follow-Up Follow up with your primary care provider Dr. Teague on 04/18 @ 12:30 Complete antibiotic course Continue prednisone taper Final sputum culture pending ( will call you if there is any bacteria growth) Current Hospital Diet Patient's current hospital diet: Low Sodium Diet (2gm Na) Discharge Diet Recommended Diet: Low Sodium Diet (2gm Na) Pending Studies Studies pending at discharge: yes (Sputum culture) Laboratory Results Hemoglobin A1c Test 04/11/17 05:31 Range/Units Estimated Average Glucose 114 mg/dl Hemoglobin A1c 5.6 4.5-5.6 % Medical Emergencies . Who to Call and When: Medical Emergencies: If at any time you feel your situation is an emergency, please call 911 immediately. . Non-Emergent Contact Non-Emergency issues call your: Primary Care Provider Call Non-Emergent contact if: you have a fever, you have any medication questions . . "Provider Documentation" section prepared by Klever Portillo. . VTE Core Measure Inpt VTE Proph given/why not?: Enoxaparin (Lovenox)SQ Additional Copies To Spencer Teague M.D.
== END 2017-04-12 12:31 | disposition home or self-care (01) | DRG 193 ==
LOC: C.EDB 07:39 → C.MED 10:43 → ENRESERV 10:57 → C.MS2W 04-11 15:24
PROVIDERS: ADMIT Internal Medicine; ATTEND Internal Medicine
DX: J18.9 Pneumonia, unspecified organism (principal); J96.01 Acute respiratory failure with hypoxia; J45.901 Unspecified asthma with (acute) exacerbation; Z68.42 Body mass index [BMI] 45.0-49.9, adult; I10 Essential (primary) hypertension; G89.29 Other chronic pain; E66.9 Obesity, unspecified; Z51.81 Encounter for therapeutic drug level monitoring; Z79.899 Other long term (current) drug therapy; Z79.891 Long term (current) use of opiate analgesic; Z87.891 Personal history of nicotine dependence

== ENCOUNTER 2023-03-08 08:51 | Observation (INO) ==
--- NOTE | 2023-02-11 13:27 | PAT Medication Instructions ---
Medication Instructions Date of Service February 11, 2023 Home Medications Medication Instructions Recorded Mari Kelly #1 ea 02/07/23 ascorbic acid (vitamin C) 1,000 mg tablet (Vitamin C) 1 g PO QAM cyanocobalamin (vitamin B-12) 1,000 mcg tablet 1,000 mcg PO QAM lisinopril 20 mg-hydrochlorothiazide 12.5 mg tablet (Zestoretic) 1 tab PO QAM cholecalciferol (vitamin D3) 25 mcg (1,000 unit) capsule (Vitamin D3) 25 mcg PO QAM 1 Medical Marijuana 1 dose topical UD PRN Pain STOP taking 24 hours before surgery Medical Marijuana 1 dose topical UD PRN Pain DO NOT take the morning of surgery ascorbic acid (vitamin C) 1,000 mg tablet (Vitamin C) 1 g PO QAM cyanocobalamin (vitamin B-12) 1,000 mcg tablet 1,000 mcg PO QAM lisinopril 20 mg-hydrochlorothiazide 12.5 mg tablet (Zestoretic) 1 tab PO QAM cholecalciferol (vitamin D3) 25 mcg (1,000 unit) capsule (Vitamin D3) 25 mcg PO QAM Other Notes If you have any questions please call us at [phone] or [phone] or [phone] or [phone]
--- NOTE | 2023-02-18 09:10 | Anesthesiology Consultation ---
Date of Service February 18, 2023 Assessment & Plan (1) Encounter for pre-operative examination: - Check BSG AM DOS - Infectious disease screening: Per assessment on 02/18/23: No known infectious disease contacts or current infectious disease symptoms. No noted Covid positive test result in past 90 days. - Outpatient joint assessment: Pt currently scheduled for inpatient pathway. If surgeon requests review for outpatient joint pathway, patient is not recommended candidate for outpatient joint program from anesthesia standpoint. Chart Review Chart Review: Acceptable Risk for Surgery and Patient seen in Pre Admission Testing Teaching & Discussion Pre-Anesthesia Teaching/Discussion Notes: Instructed NPO after midnight before surgery,except medications with 15 cc of water. Medication instructions provided according to the PAT guidelines. History Surgery Operation Date: 03/08/23 08:50 Proposed Procedures p Left Total Knee Arthroplasty - Joseph Espinoza MD Height/Weight Height: 6 ft Weight: 171.1 kg Allergies Allergy/AdvReac Type Severity Reaction Status Date / Time morphine Allergy Intermediate Headache, Verified 02/12/23 12:43 hives Medications Home Medications Medication Instructions Recorded Confirmed Last Taken ascorbic acid (vitamin C) 1,000 mg 1 g PO QAM 06/17/20 02/08/23 02/23/21 tablet (Vitamin C) cyanocobalamin (vitamin B-12) 1,000 mcg PO QAM 06/17/20 02/08/23 02/23/21 1,000 mcg tablet lisinopril 20 1 tab PO QAM 06/17/20 02/08/23 02/23/21 mg-hydrochlorothiazide 12.5 mg tablet (Zestoretic) cholecalciferol (vitamin D3) 25 25 mcg PO QAM 02/20/21 02/08/23 02/23/21 mcg (1,000 unit) capsule (Vitamin D3) Wheeled Walker #1 ea 02/07/23 02/07/23 Unknown Medical Marijuana 1 dose topical UD PRN Pain 02/08/23 02/08/23 Unknown Past Medical History Medical History Bulging lumbar disc History of asthma As child Hypertension Morbid obesity Prediabetes Exercise / Class Metabolic Activity III < 4 Walking/Shop/Light housework (one FS (no CP, + SOB)) Past Family History Family History Other No family history of adverse response to anesthesia Past Surgical History Surgical History H/O ankle fusion Left History of arthroscopic surgery of shoulder R/L 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 History of arthroscopy Right knee History of colonoscopy History of herniorrhaphy Abdominal [place] teeth removed Past Anesthesia History No Family Hx of Anesthesia Complications and Other (Diaphragmatic paralysis with PNB for shoulder block) History of PONV No Hx of PONV and No Hx of Motion Sickness Social History Smoking Status: Former smoker tobacco type: cigarettes Do You Dip or Chew Tobacco: No Smoking End Date: Quit 03/03/22 Hx Alcohol Use: Yes Alcohol type: wine and hard liquor alcohol intake frequency: a few times a month Hx Substance Use: Yes substance use type: marijuana (Medical marijuana- previous topical PRN (no recent use)) Review of Systems Patient denies chest pain, shortness of breath, fever, chills, cough, wheezing, palpitations. Physical Exam Vital Signs VITALS BP 157/92 P 84 TEMP 98.1 SP02 98%RA RESP 18 PHYSICAL Mildly decreased cervical extension range of motion. Full TMJ range of motion. TMD 4 finger breaths Mallampati Score 2 Dentition: missing molars, + crowns (upper sides) Lungs: clear throughout to auscultation Cardiac: regular rate and rhythm, no murmurs noted Spine: normal Carotid arteries: negative bruit Extremities: no LE edema Thick neck Lab Results Anesthesia Preop Results Results Anesthesia Widget: WBC 5.44 K/ul (4.8-10.8) 02/18/23 Hgb 14.0 g/dl (14.0-18.0) 02/18/23 Hct 42.7 % (42.0-52.0) 02/18/23 Plt 137 K/uL (130-400) 02/18/23 Na 140 mmol/L (136-145) 02/18/23 K 3.8 mmol/L (3.5-5.1) 02/18/23 Cl 103 mmol/L (98-107) 02/18/23 CO2 34 mmol/L (21-32) H 02/18/23 BUN 16 mg/dl (6-23) 02/18/23 Creat 0.85 mg/dl (0.6-1.4) 02/18/23 Glucose Level 191 mg/dl (70-99(Fasting)) H 02/18/23 PT 10.9 Seconds (9.0-12.0) 02/18/23 PTT 27.9 Seconds (21.0-31.0) 02/18/23 INR 1.0 (0.9-1.1) 02/18/23 Blood Type A Positive 02/18/23 Antibody Screen NEGATIVE 02/18/23 Testing Electrocardiogram Date: 02/18/23 NSR at 79bpm. "Normal ECG" Chest X-Ray Date: 02/18/23 FINDINGS: PA and lateral chest radiographs are compared to study dated 09/20/2013. The cardiomediastinal silhouette is unremarkable. The lungs and pleural spaces are clear. There is no pneumothorax. The bony thorax appears intact. IMPRESSION: No active disease in the chest.
[~2023-03-08 08:51] MED LIST changes: +ACETAMINOPHEN 500 MG TAB PO SCH; -ALBU1AER9 INH; +BUPIVACAINE 0.5 % 5 MG/1 ML PF 10ML VIAL ONE; +BUPIVACAINE LIPOSOME/PF 266 MG, BUPIVACAINE/EPINEPHRINE 50 ML, SODIUM CHLORIDE 0.9% PF ... INFIL SCH; +CeleBREX 200 MG CAP PO SCH; +FAMOTIDINE 20 MG TAB PO SCH; -HYDR-5688 PO; -LISI-787 PO; +LR 500ML BOLUS, THEN 15ML/HR IV SCH; +LR 60ML/HR IV SCH; +METOCLOPRAMIDE HCL 10 MG TABLET PO SCH; +ROPIVACAINE 0.5% 5 MG/ML 30 ML VIAL ONE; +Scopolamine 1 MG TDSY TD SCH; +TRANEXAMIC ACID 1,000 MG **IV Intra-op IV SCH; +dexAMETHasone**PF** 10 MG/ML VIAL IV SCH
--- NOTE | 2023-03-08 08:55 | History & Physical Bridge Note ---
Date of Service March 08, 2023 History & Physical Bridge Note I have examined the patient, reviewed the History & Physical and in the interval since the performance of the History & Physical I have noted the following changes of clinical significance: no changes noted
[2023-03-08] MEDS ORDERED: LIDOCAINE 2% 2 ML VIAL/AMP(20MG/ML) INFIL ONE (09:56)
[2023-03-08] MEDS ORDERED: PROPOFOL IV EMULSION 10 MG/ML 20 ML VIAL IV ONE ×3 (09:56→12:18)
[2023-03-08] MEDS ORDERED: KETOROLAC 30 MG/ML VIAL ONE (09:56)
[2023-03-08] MEDS ORDERED: fentaNYL citrate PF 100 MCG/2 ML VIAL ONE (09:56)
[2023-03-08] MEDS ORDERED: MIDAZOLAM HCL 1 MG/ML 2ML VIAL ONE (09:56)
[2023-03-08] MEDS ORDERED: SODIUM CHLORIDE 0.9% PF 50 ML VIAL ONE (10:54)
[2023-03-08] MEDS ORDERED: BUPIVACAINE/EPINEPHRINE 0.25% 1:200,000 30 ML VIAL ONE (10:54)
[2023-03-08] MEDS ORDERED: BUPIVACAINE LIPOSOME 1.3% 266 MG/20 ML VIAL ONE (10:54)
[2023-03-08] MEDS ORDERED: VANCOMYCIN HCL 1000MG/20ML VIAL ONE (11:07)
[2023-03-08] MEDS ORDERED: ePHEDrine sulfate 50 MG/ML AMP IV PRN (11:14)
[2023-03-08] MEDS ORDERED: fentaNYL citrate PF 100 MCG/2 ML VIAL IV PRN (11:14)
[2023-03-08] MEDS ORDERED: ONDANSETRON INJ 2 MG/ML 2 ML VIAL IV PRN ×2 (11:14→14:14)
[2023-03-08] MEDS ORDERED: ATROPINE SULFATE 0.1 MG/ML 10ML SYR IV PRN (11:14)
[2023-03-08] MEDS ORDERED: ceFAZolin 330 MG/ML 1 GM VIAL ONE (11:24)
[2023-03-08] MEDS ORDERED: ePHEDrine sulfate 50 MG/5 ML SYR ONE (11:54)
[2023-03-08] MEDS ORDERED: PHENYLEPHRINE 100MCG/ML 10ML SYR IV ONE (12:39)
--- NOTE | 2023-03-08 13:19 | Operative Report ---
PG Post Operative Report Pre & Post Diagnosis Operation Date: 03/08/23 10:40 Pre-Op Diagnosis: Left Knee Advanced Degenerative Joint Disease Post-Op Diagnosis: Left Knee Advanced Degenerative Joint Disease I identified the patient and participated in the time-out.: Yes Procedure Operation Date: 03/08/23 10:40 Actual Procedures p Left Total Knee Arthroplasty(Left) - Joseph Espinoza MD Surgeon Joseph Espinoza MD Stenotype Machine Operator Jacky Cooper PA-C Estimated Blood Loss 50 Findings Consistent with Post-Op Diagnosis Operative findings revealed advanced the left knee with medial compartment DJD. Complete full-thickness cartilage loss of the medial femoral condyle medial tibial plateau. Varus deformity to his knee. Moderate-sized joint effusion. Osteophytes primarily medially. Specimens Left knee sent for pathology Anesthesia Type Spinal MAC Complications none Disposition Accompanied Patient To Recovery: No Indications Patient is a 63-year-old very large obese middle-age male who has a long history of bilateral knee pain discomfort left side greater than right. Is been through extensive conservative treatment over the years which become less successful. He has been having more difficult mobilizing due to the pain and discomfort. X- rays show advanced knee arthritis. He elected proceed with total knee arthroplasty. Description of Procedure Operative implants consist of: 1 Biomet Vanguard size 72.5 left posterior stabilized femoral component. 2. Biomet size 79 tibial tray. 3. 12 mm posterior stabilized polyethylene insert. 4. 31 x 8 all poly patella. The patient was taken to the operating, identified, and placed on the operating table supine position but all contact areas were appropriately padded. IV antibiotics were provided by the anesthesia team. A spinal anesthetic and abductor canal block had been provided in the holding area. A left thigh tent was then placed. Left lower extremity was then prepped and draped in usual ster ile fashion. The left leg was elevated exsanguinated with use of an Esmarch and the tourniquet was placed at 300 mmHg. An anterior approach the left knee was then performed to longitudinal incision centered over the patella. Sharp dissection was carried through subcutaneous tissue down the extensor mechanism. A medial parapatellar arthrotomy incision was made. Some subperiosteal dissection was carried out medially. The fat pad was resected from Neath patella tendon. The lateral patellofemoral ligament was released. Patella subluxated laterally and the knee was flexed. The osteophytes were taken off distal femur. The ACL and PCL were then released from distal femur the tibia subluxated anteriorly. The external tibial alignment jig was then placed on the anterior face of the tibia and adjusted 14 mm medially. Proximal tibial cut was made remove about 2 mm of bone from the medial side. The tibia sized to a size 79. Attention drawn the femur. The distal femur examined the sharp drill. Intramedullary canal was suction. A left 6 degree valgus cutting guide was placed. Distal femoral cutting block was pinned in place. Distal femoral cut was made to take an additional 3 mm of bone off distal femur. The femur was then sized to a size 72.5. The AP cutting block was pinned parallel to the epicondylar axis which was 5 degrees of external rotation. The anterior cut, anterior chamfer, posterior cut, posterior chamfer cuts were made. The box cutting guide was placed in a just slight lateral and the box cut was made. The knee was flexed. The remnants of the medial and lateral menisci were excised. The osteophytes were taken off the posterior aspect the femur. A trial femoral component was placed. The tibial tray was pinned in maximum external rotation and the drill and stem punch were used to create defect in proximal tibia for the tibial tray. Knee was then trialed and the 12 mm insert fit most appropriately. Attention drawn the patella. The patella was cleaned of all soft tissues. Patella thickness measured 23 mm in thickness was cut down to 15. It was sized to a size 31 patella. The locals were drilled for 31 patella. Lateral osteophytes removed. Patella button was placed. Knee was taken through range of motion and the patella tracked nicely with no thumbs test. Attention drawn to placing permanent components. Nupathe all trial components were removed. Bone plug was placed in the distal femur limit blood loss. A double batch Palacos G cement was mixed. I did add an additional gram of vancomycin to the cement due to the patient's increased risk of infection based on his morbid obesity and poorly controlled diabetes. Biomet [employer] size 72.5 left posterior stabilized femoral component, a size 79 tibial tray, a 12 mm pro stabilized polyethylene insert, and a 31 x 8 all Paller patella then cemented in place. The knee was brought out into full extension till cement hardened. Final cement check was then performed. Pericapsular tissues were injected with total of 100 cc combination of choice of Exparel, 30 cc normal saline, 50 cc of quarter percent Marcaine with epinephrine. Patient did receive 1 g tranexamic acid. The tourniquet was then let down for final tourniquet time of 63 minutes. Hemostasis reduced electrocautery. Extensor mechanism then closed with combination 1 PDS suture and 1 Vicryl suture in fig [id number] fashion. Extensor mechanism checked found to be intact through the subcutaneous tissues then closed with 2 Dexon suture in buried interrupted fashion and the skin was closed with skin yanick. Leg was then cleaned and dried and sterile dressing was Xeroform, 4 fours, sterile cast padding, Azar bandage were applied. The patient was then transferred to the recovery room in stable condition. The patient tolerated the procedure well and there were no complications. Jacky Cooper, my physician medical records assistant, was present for the entire procedure. His assistance was essential and required for appropriate patient positioning, prepping and draping, surgical exposure, performing the technical details of the operation, placement the implants, closure of the wound, and placement of the st erile bandage. I attest to the content of the Intraoperative Record and any orders documented therein. Any exceptions are noted below.
--- NOTE | 2023-03-08 13:53 | XRay Report ---
XR knee LT 1 or 2V routine CLINICAL HISTORY: Surgical Post Op TECHNIQUE: 2 views of the left knee were obtained. Comparison: Comparison is made to knee radiographs 02/07/2023 FINDINGS: Patient is status post total knee arthroplasty with expected postsurgical changes including soft tiss ue swelling and subcutaneous emphysema. No periarticular lucency or hardware fracture is seen. IMPRESSION: Expected postoperative appearance status post placement of total knee arthroplasty. ACT 112: Negative or not required by law. Electronically signed by: Jer Higuera M.D. 03/08/2023 1:52 PM
--- NOTE | 2023-03-08 14:01 | Anesthesiology Progress Note ---
Date of Service March 08, 2023 Anesthesia Post Procedure Vital Signs Vital Signs: Temp Pulse Pulse Resp BP Pulse Ox O2 Del Method 03/08/23 13:50 89 16 136/92 96 Nasal Cannula 03/08/23 13:35 36.2 C L 82 14 109/86 98 Nasal Cannula 03/08/23 13:25 95 H 14 109/77 98 Nasal Cannula 03/08/23 13:15 105 H 13 95/70 L 98 Nasal Cannula 03/08/23 13:09 36.2 C L 114 H 14 89/68 L 93 Oxymask 03/08/23 09:28 Room Air 03/08/23 09:28 36.9 C 81 20 158/119 H 94 Room Air O2 Flow Rate 03/08/23 13:50 2 03/08/23 13:35 2 03/08/23 13:25 2 03/08/23 13:15 4 03/08/23 13:09 4 03/08/23 09:28 03/08/23 09:28 Pain Intensity Left Knee: Pain Intensity: 4 Notes Mental Status: alert / awake / arousable Patient Amnestic to Procedure: Yes Nausea / Vomiting: adequately controlled Pain: adequately controlled Airway Patency, RR, SpO2: stable & adequate BP & HR: stable & adequate Hydration State: stable & adequate Neuraxial Anesthesia: was administered and sensory block is resolving Anesthetic Complications: no major complications apparent
[2023-03-08] MEDS ORDERED: NALOXONE HCL 0.4 MG/1 ML VIAL/CARP IV PRN (14:14)
[2023-03-08] MEDS ORDERED: SODIUM CHLORIDE 0.9% 1,000 ML IV SCH (14:14)
[2023-03-08] MEDS ORDERED: MAGNESIUM HYDROXIDE SUSP 30 ML UDC PO PRN (14:14)
[2023-03-08] MEDS ORDERED: CARBOHYDRATES FOR HYPOGLYCEMIA PO PRN (14:14)
[2023-03-08] MEDS ORDERED: bisacodyL 10 MG SUPP PR PRN (14:14)
[2023-03-08] MEDS ORDERED: diphenhydrAMINE Capsule 25 MG CAP PO PRN (14:14)
[2023-03-08] MEDS ORDERED: ALUMINUM/MAGNESIUM SUSP 30 ML UDC PO PRN (14:14)
[2023-03-08] MEDS ORDERED: GLUCOSE 10 TAB/TUBE PO PRN (14:14)
[2023-03-08] MEDS ORDERED: GLUCOSE 40% GEL 15 GM TUBE PO PRN (14:14)
[2023-03-08] MEDS ORDERED: PHARMACY GLYCEMIC MGMT CONSULT PRN (14:14)
[2023-03-08] MEDS ORDERED: NON-FORMULARY MEDICATION (Medical Marijuana 1 EA) TOP PRN (14:14)
[2023-03-08] MEDS ORDERED: HYDROmorphone INJ 0.5 MG/0.5 ML SYR IV PRN (14:14)
[2023-03-08] MEDS ORDERED: GLUCAGON FOR INJ 1 MG VIAL SQ PRN (14:14)
[2023-03-08] MEDS ORDERED: DEXTROSE 50% 50 ML SYRINGE IV PRN (14:14)
[2023-03-08] MEDS ORDERED: METOCLOPRAMIDE HCL INJ 5 MG/ML 2 ML VIAL IV PRN (14:14)
--- NOTE | 2023-03-08 14:55 | Pharmacy Report ---
Pharmacy Glycemic Short Note 2 - Date of Service March 08, 2023 - Glycemic Short BSG Results (Last 24 hours): 03/08/23 09:20 POC Glucose 132 H OUTPATIENT ANTIDIABETIC REGIMEN: * n/a * HbA1c: pending with tomorrow's AM labs (prediabetes noted in pt's history) ASSESSMENT: * Mr Raman is a 63yo diabetic M, POD 0 s/p L TKA with Dr Espinoza this morning. * Pt with unknown outpt glucose control in the absence of current A1c. * Pt did receive 10mg IV dexamethasone pre-op, which often causes significant steroid-induced hyperglycemia. * Pt initiated on SQ insulin on admission. Novolog dosed at a moderate stress l evel, adjusting for pt's BMI. * Pharmacy will continue to follow and adjust regimen as indicated. PLAN FOR INPATIENT GLYCEMIC CONTROL: * Basal insulin * Lantus 20 units SQ this evening if BSG is 180 mg/dL or greater * Will re-assess in AM * Bolus insulin * NovoLog per scale ACHS or Q6hrs while NPO * Goal Range: Low 110 mg/dL - High 140 mg/dL * Correction Factor: 20 mg/dL/unit * Nutritional / Prandial insulin per carb ratio of 1 unit per 7 grams CHO consumed
[2023-03-08] MEDS: KETOROLAC 30 MG/ML VIAL IV SCH ×2 (15:11→19:54)
[2023-03-08] MEDS: Scopolamine CHECK PATCH PLACEMENT SCH ×2 (15:12→23:40)
[2023-03-08] MEDS: ACETAMINOPHEN 500 MG TAB PO SCH ×2 (15:12→19:52)
[2023-03-08] MEDS: INSULIN ASPART PER UNIT CHARGE SC SCH ×2 (16:28→20:21)
[2023-03-08] MEDS: ASCORBIC ACID 500 MG TAB PO SCH (16:29)
[2023-03-08] MEDS ORDERED: LANTUS PER UNIT CHARGE SC SCH (16:30)
[2023-03-08] MEDS: oxyCODONE HCL IR 5 MG TAB (IMMEDIATE RELEASE) PO PRN ×2 (16:55→22:57)
[2023-03-08] MEDS: ceFAZolin 2000MG 2,000 MG/15 ML SYR IV SCH (18:05)
[2023-03-08] MEDS ORDERED: TRANEXAMIC ACID / 0.7% NACL 1,000 MG/100 ML BAG IV SCH (19:15)
[2023-03-08] MEDS: SENNA 8.6 MG TAB PO SCH (19:54)
[2023-03-08] MEDS: ASPIRIN 81 MG ECTAB PO SCH (19:55)
[2023-03-08] MEDS: DOCUSATE SODIUM 100 MG CAP PO SCH (19:55)
[2023-03-08] MEDS ORDERED: SENNA 8.6 MG TAB PO SCH (21:00)
[2023-03-09] MEDS: ceFAZolin 2000MG 2,000 MG/15 ML SYR IV SCH (02:37)
[2023-03-09] MEDS: KETOROLAC 30 MG/ML VIAL IV SCH ×2 (02:37→07:49)
--- NOTE | 2023-03-09 07:24 | Surgery Progress Note ---
Date of Service March 09, 2023 Assessment & Plan (1) Status post left knee replacement: Plan: 63-year-old gentleman with multiple moderate medical comorbidities postop day 1 from left knee replacement doing quite well. Pain is controlled. He is neurologically intact. He has been up and mobilizing. He is hoping to go home today. Plan: 1. DVT prophylaxis including thigh-high teds, SCDs, aspirin twice a day. 2. PT OT. Weight-bear as tolerated left total knee protocol. 3. Pain control doing okay with current pain regimen. 4. Disposition plan to discharge home with some home health later today if does okay in therapy. Admission and Anticipated Discharge Date Admission Date: March 08, 2023 Subjective 63-year-old gentleman postop day #1 from left knee replacement. He is doing pretty well. Pain is controlled. He has been up walk around and doing remarkably well. Denies any chest pain or shortness of breath. Physical Exam Physical Exam: The patient was a pleasant middle-age male. He is lying in bed this morning looks pretty comfortable. Examination of the left leg reveals the dressing be clean dry and intact. No drainage. Can do a straight leg raise. He can dorsiflex and plantarflex his foot appropriately. Respiratory: normal respiratory effort, lungs clear to auscultation Cardiovascular: RRR, no murmur, no edema Gastrointestinal (Abdomen): normal bowel sounds, soft, nontender, no hepatosplenomegaly Results & Data Vital Signs (Past 12 Hours) Vital Signs Temp Pulse Resp BP Pulse Ox O2 Del Method 03/09/23 07:07 36.4 C L 66 16 125/81 95 Room Air 03/09/23 02:59 36.6 C 88 18 111/80 95 Room Air 03/08/23 23:00 36.7 C 82 18 138/81 95 Room Air Laboratory Results Laboratory results pending. PG Care Time/CCT Total # of Minutes Spent Total Time Spent with Patient: Total time spent is greater than 50% in coordination of care (as documented) at patient's floor/unit and/or counseling patient: Coding Level of Care Code None Diagnoses Status post left knee replacement Z96.652
[2023-03-09] MEDS: oxyCODONE HCL IR 5 MG TAB (IMMEDIATE RELEASE) PO PRN (07:30)
[2023-03-09] MEDS: ASCORBIC ACID 500 MG TAB PO SCH (07:47)
[2023-03-09] MEDS: Scopolamine CHECK PATCH PLACEMENT SCH (07:48)
[2023-03-09] MEDS: ASPIRIN 81 MG ECTAB PO SCH (07:49)
[2023-03-09] MEDS: ACETAMINOPHEN 500 MG TAB PO SCH (07:49)
[2023-03-09] MEDS: DOCUSATE SODIUM 100 MG CAP PO SCH (07:51)
[2023-03-09] MEDS: SENNA 8.6 MG TAB PO SCH (07:51)
[2023-03-09 07:52] LABS: Hematocrit (blood only) 36.9 % (42.0-52.0); Mean Corpuscular Hemoglobin 30.7 pg (25.0-34.0); Mean Corpuscular Hgb Conc 32.5 g/dL (32.0-36.0); Mean Corpuscular Volume 94.4 fL (80.0-100.0); Mean Platelet Volume 12.7 fL (9.4-12.4); Platelet Count 147 K/uL (130-400); RDW Coefficient of Variation 13.3 % (11.5-14.5); Red Blood Count 3.91 M/uL (4.70-6.10); White Blood Count 12.48 K/ul (4.8-10.8)
[2023-03-09] MEDS ORDERED: dexAMETHasone 4 MG TAB PO SCH (08:00)
[2023-03-09] MEDS: INSULIN ASPART PER UNIT CHARGE SC SCH (08:07)
[2023-03-09 08:16] LABS: Calcium 9.1 mg/dl (8.6-10.3); Potassium 4.2 mmol/L (3.5-5.1)
[2023-03-09 08:19] LABS: Estimated Average Glucose 146 mg/dl; Hemoglobin A1C 6.7 % (4.5-5.6)
[2023-03-09 08:22] LABS: BUN Creatinine Ratio 26.8 (10-20); Creatinine Clr Calc Pharmacy 110.1 ml/min; Est GFR (African American) 80.6 ml/min; Est GFR (Non-African American) 69.5 ml/min
[2023-03-09] MEDS ORDERED: LISINOPRIL/HCTZ 20/12.5MG 1 TAB TAB PO SCH (09:00)
[2023-03-09] MEDS ORDERED: CYANOCOBALAMIN (B-12) 500 MCG TABLET PO SCH (09:00)
[2023-03-09] MEDS ORDERED: CHOLECALCIFEROL 1,000 UNITS 25 MCG TAB PO SCH (09:00)
[2023-03-09] MEDS ORDERED: LANTUS PER UNIT CHARGE SC ONE (09:00)
[2023-03-09] MEDS ORDERED: TAMSULOSIN HCL 0.4 MG CAP PO SCH (09:00)
[2023-03-09] MEDS ORDERED: MULTIVITAMIN TAB PO SCH (09:00)
[2023-03-09] MEDS ORDERED: NON-FORMULARY MEDICATION (Ascorbic Acid (Vitamin C) [Vitamin C] 1,000 mg Tablet) PO SCH (09:00)
--- OUTSIDE RECORDS SUMMARY | 2023-03-09 20:18 | External Medical Summary | Summary of Care ---
Author Name Unknown Organization [facility] Address [address] [place] [address] Phone [phone] Care Team Providers Care Tank Car Mechanic Name Role Phone Spencer Teague MD Primary Care Provider + Reason for Visit * Reason Onset Date Comments FYI 02/26/2023 Encounter Details Date Type Department Care Team (Late st Contact Info) Description 02/26/2023 Telephone Family Practice [facility] [address] [place] [address] Spencer Teague MD [address], [place] [id number] FYI Allergies Active Allergy Reactions Criticality Noted Date Comments Dicyclomine Hcl 04/13/1998 HIVES Morphine Rash 04/29/2013 Prochlorperazine 04/13/1998 ? REACTION documented as of this encounter (statuses as of 02/27/2023) Medications Medication Sig Dispensed Refills Start Date End Date Status Lisinopril-hydroCHLO ROthiazide 20-12.5 MG Oral TabletIndications:HT N, goal below 140/90 Take 1 Tablet by mouth in the morning. 180 Tablet 1 12/14/2022 Active Wegovy 0.5 MG/0.5ML Subcutaneous Solution Auto-injector (Semaglutide-Weight Management)Indicatio ns:Obesity, morbid (more than 100 lbs over ideal weight or BMI > 40) (HCC) Inject 0.5 mg under the skin once a week. 2 mL 2 12/14/2022 Active valACYclovir HCl 500 MG Oral Tablet (Valtrex) take 1 tablet by mouth twice a day for 3 days for RECURRING EPISODE 12 Tablet 3 02/12/2023 Active documented as of this encounter (statuses as of 02/27/2023) Active Problems Problem Noted Date Diagnosed Date Medical marijuana use 06/08/2022 Chronic pain of left knee 06/08/2022 Reactive airway disease 11/23/2020 Tobacco user 11/23/2020 Lumbar disc herniation with radiculopathy 2020 Lumbosacral radiculopathy at L5 05/12/2020 TERMINATED MEDICATION USAGE AGREEMENT 03/13/2019 Overview: 03/13/2019 Prediabetes 06/04/2017 Overview: Per Prediabetes protocol #1 Well adult exam 08/29/2016 Overview: 03/12 colon tubular adenomas rectum/desending @[facility] 2015 colon tubular adenomas chava 5y. 04/07 A1c 6.0--Gluc 140 at hosp. labs/urine @[facility] From 04/26/16 visit: chronc LBP for years, saw ortho, Dr Hendrickson, not yet surg candidate, saw Chiro--Dr Vargas, Dr Roberts rheum, started vicodin, 7.5mg was too strong--sleepy, 5mg does well for fair pain control, no side effects. NSAIDS weren't effective for him. Carpal tunnel syndrome of left wrist 05/23/2016 Overview: 04/06 EMG_mod severe Dyslipidemia, goal LDL below 100 10/14/2015 Chronic pain syndrome 10/14/2015 Degeneration of lumbosacral intervertebral disc 05/12/2014 Obesity, morbid (more than 1 00 lbs over ideal weight or BMI > 40) 07/19/2009 Overview: Per Obesity Taxonomy ICD-10 update of inactive term Other ventral hernia without mention of obstruction or gangrene 04/23/2006 ADVANCE DIRECTIVE INFORMATION 01/04/2006 Overview: Pt declined brochure HTN, goal below 140/90 06/26/2005 Former smoker 06/26/2005 Calculus of ureter 08/03/1992 documented as of this encounter (statuses as of 02/27/2023) Resolved Problems Problem Noted Date Diagnosed Date Resolved Date MEDICATION USE AGREEMENT 04/26/2016 Jaw pain 10/16/2011 04/18/2017 Dyslipidemia, goal to be determined 03/29/2010 10/14/2015 OBESITY, UNSPECIFIED 06/26/2005 010 Overview: Per Obesity Taxonomy documented as of this encounter (statuses as of 02/27/2023) Immunizations Name Administration Dates Next Due COVID-19 mRNA, LNP-s, No Pre serve, 2-Dose Series (Pfizer) 07/31/2021,02/02/2021,07/05/2020,06/08 Pneumococcal Polysaccharide PPV23 (Pneumovax) 11/10/2008 SEASONAL INFLUENZA, PF, 6 M & Above, IM , (FLULAVAL or FLUZONE) 12/26/2021 Seasonal Influenza, Quad, Na bisi (Flumist) 12/29/2017 Seasonal Influenza, Split, I IV3, With Preserve, Inj 01/04/2017,03/12/2016,01/20/2015,02/20,02/21/2012,05/03/2011,03/06/2010 TDAP (age 10 and older)(Boostrix) 02/16/2019 TDAP (age 11 and older)(Adacel) 11/10/2008 Zoster Vaccine Recombinant (Shingrix) 01/06/2018 ,08/30/2017 documented as of this encounter Social History Tobacco Use Types Packs/Day Years Used Date Smoking Tobacco: Former Cigarettes 0.5 20 Q uit: 12/21/2016 Smokeless Tobacco: Never Comments:Quit smoking 1998 a fter 10yrs , 1pk/d. Resumed smoking 6-04, 1pk /d Alcohol Use Standard Drinks/Week Comments Yes 0 (1 standard drink = 0.6 oz pur e alcohol) 4-5 drinks per weekend PHQ-2 Answer Date Recorded PHQ Adult Total Score 0 06/08/2022 Hunger Vital Sign Answer Date Recorded Within the past 12 months, y ou worried that your food would run out before you got the money to buy more. Never true 06/08/19 23 Within the past 12 months, t he food you bought just didn't last and you didn't have money to get more. Never true 06/08/2022 Sex and Gender Information Value Date Recorded Sex Assigned at Male 06/08/2022 2:50 PM EST Gender Identity Male 06/08/2022 2:50 PM EST Sexual Orientation Straight 06/08/2022 2: 50 PM EST Job Start Date Occupation Industry Not on file Not on file Not on file documented as of this encounter Miscellaneous Notes * Telephone Encounter - Brigette Gore OSA - 02/27/2023 9:01 AM EST Patient called in returning call. Advised pt that per Dr. Teague, an order has been placed for A1C, patient scheduled lab draw for 03/05, when he will be back in [facility]. Thank you. * Telephone Encounter - Ginny Santana - 02/27/2023 8:43 AM EST LM for pt to call back to inform him of message * Telephone Encounter - Spencer Teague MD - 02/26/2023 3:25 PM EST Chava A1c ordered to get average sugar. No changes needed ahead of surgery * Telephone Encounter - Jennifer Browne OSA - 02/26/2023 2:41 PM EST Pt's scheduled to have total knee surg on 03/08. Pt labs were flagged for glucose at 191. Wanted PCP to be aware. Sending over labs to be reviewed. documented in this encounter Plan of Treatment Upcoming Encounters Date Type Department Care Team (Late st Contact Info) Description 03/05/2023 9:10 AM EST Laboratory Laboratory, [facility] [address] [place] [phone] [facility] [address] [place] [address] Scheduled Orders Name Type Priority Associated Diagnoses Orde r Schedule HEMOGLOBIN A1C Lab Routine Prediabetes Expected: 02/26/2023 (Approximate), Expires: 02/26/2024 Scheduled Procedures Name Priority Associated Diagnoses Date/Ti me COLONOSCOPY FLEXIBLE PROXIMA L DIAGNOSTIC Recall History of colonic polyps Health Maintenance Due Date Last Done Comments Albumin/Creatinine Ratio 1978 Pneumococcal Vaccine: Pediatrics (0 to 5 Years) and At-Risk Patients (6 to 64 Years) (2 - PCV) 11/10/2009 11/10/2008 COVID-19 Vaccine ( - 2022- season) 2022 07/31/2021, 02/02/2021, 07/05/2020, Additional history exists Influenza Vaccine (FLU shot) (#1) 2022 12/26/2021, 12/29/2017, 01/04/2017, Additional history exists Depression Screening 06/08/2023 06/08/2022, 08/29/2016 (Declined) HbA1c 06/08/2023 06/08/2022, 0804/2020, 03/02/2019, Additional history exists GFR 12/28/2023 12/27/2022, 05/23, 12/20/2020, Additional history exists COLONOSCOPY-EVERY 3 YRS AGES 18-100 02/25/2024 02/24/2021, 09/16/2015 Lipid Panel 12/20/2025 12/20/2020, 02/20, 06/11/2015, Additional history exists DTaP,Tdap,and Td Vaccines (3 - Td or Tdap) 02/16/2029 02/16/2019, 11/10/2008 Zoster Vaccines Completed 01/06/2018, 08/30/2017 COLONOSCOPY-EVERY 5 YRS AGES 18-100 Discontinued 02/24/2021, 09/20/2015 (Done elsewhere), 09/16/2015 GARDASIL-HPV IMMUNIZATION SERIES Aged Out No longer eligible based on patient's age to complete this topic Hepatitis B Aged Out No longer eligi ble based on patient's age to complete this topic MENINGOCOCCAL (MENACTRA/MENVEO) Aged Out No longer eligible based on patient's age to complete this topic documented as of this encounter Medical Devices Not on filedocumented as of this encounter Visit Diagnoses Diagnosis Prediabetes- Primary Other abnormal glucose documented in this encounter Care Teams Tank Car Mechanic Relationship Specialty Start Date End Date Spencer Teague MD [address] [place] [id number] PCP - General Family Medicine 04/26/16 documented as of this encounter
--- OUTSIDE RECORDS SUMMARY | 2023-03-10 08:23 | External Medical Summary | Summary of Care ---
Author Name Unknown Organization [facility] Address [address] [place] [address] Phone [phone] Care Team Providers Care Forest Scientist Name Role Phone Spencer Teague MD Primary Care Provider + Encounter Details Date Type Department Care Team (Late st Contact Info) Description 02/28/2023 Telephone Family Practice [facility] [address] [place] [id number] Spencer Teague MD [address] [place] [id number] Allergies Active Allergy Reactions Criticality Noted Date Comments Dicyclomine Hcl 04/13/1998 HIVES Morphine Rash 04/29/2013 Prochlorperazine 04/13/1998 ? REACTION documented as of this encounter (statuses as of 03/08/2023) Medications Medication Sig Dispensed Refills Start Date End Date Status Lisinopril-hydroCHLO ROthiazide 20-12.5 MG Oral TabletIndications:HT N, goal below 140/90 Take 1 Tablet by mouth in the morning. 180 Tablet 1 12/14/2022 Active Wegovy 0.5 MG/0.5ML Subcutaneous Solution Auto-injector (Semaglutide-Weight Management)Indicatio ns:Obesity, morbid (more than 100 lbs over ideal weight or BMI > 40) ([facility]) Inject 0.5 mg under the skin once a week. 2 mL 2 12/14/2022 Active valACYclovir HCl 500 MG Oral Tablet (Valtrex) take 1 tablet by mouth twice a day for 3 days for RECURRING EPISODE 12 Tablet 3 02/12/2023 Active documented as of this encounter (statuses as of 03/08/2023) Active Problems Problem Noted Date Diagnosed Date Medical marijuana use 06/08/2022 Chronic pain of left knee 06/08/2022 Reactive airway disease 11/23/2020 Tobacco user 11/23/2020 Lumbar disc herniation with radiculopathy 2020 Lumbosacral radiculopathy at L5 05/12/2020 TERMINATED MEDICATION USAGE AGREEMENT 03/13/2019 Overview: 03/13/2019 Prediabetes 06/04/2017 Overview: Per Prediabetes protocol #1 Well adult exam 08/29/2016 Overview: 03/12 colon tubular adenomas rectum/desending @[facility] 2015 colon tubular adenomas chava 5y. [...] as of this encounter (statuses as of 03/08/2023) Resolved Problems Problem Noted Date Diagnosed Date Resolved Date MEDICATION USE AGREEMENT 04/26/2016 Jaw pain 10/16/2011 04/18/2017 Dyslipidemia, goal to be determined 03/29/2010 10/14/2015 OBESITY, UNSPECIFIED 06/26/2005 010 Overview: Per Obesity Taxonomy documented as of this encounter (statuses as of 03/08/2023) Immunizations Name Administration Dates Next Due COVID-19 mRNA, LNP-s, No Pre serve, 2-Dose Series ([employer]) 07/31/2021,02/02/2021,07/05/2020,06/08 Pneumococcal Polysaccharide PPV23 (Pneumovax) 11/10/2008 SEASONAL [...] encounter Miscellaneous Notes * Telephone Encounter - Spencer Teague MD - 02/28/2023 8:33 AM EST No changes needed at this time. * Telephone Encounter - Yanni Vargas LPN - 02/28/2023 8:22 AM EST Received fax from [facility] physician regarding patient. Fax states "patient had pre-op testingfor knee replacement surgery on 03/08/23. Dr. Espinoza wanted PCP made aware of high glucose results.(Results were 191) Please advise patient of any treatment if needed. " Fax placed in PCP mailbox to review lab results. Please advise if further testing is needed. documented in this encounter Plan of Treatment Scheduled Procedures Name Priority Associated Diagnoses Date/Ti me COLONOSCOPY FLEXIBLE PROXIMA L DIAGNOSTIC Recall History of colonic polyps Health Maintenance Due Date Last Done Comments Albumin/Creatinine Ratio 1978 Pneumococcal Vaccine: Pediatrics (0 to 5 Years) and At-Risk Patients (6 to 64 Years) (2 - PCV) 11/10/2009 11/10/2008 COVID-19 Vaccine (5 - 2022-24 season) 2022 07/31/2021, 02/02/2021, 07/05/2020, Additional history [...] Not on filedocumented as of this encounter Care Teams Forest Scientist Relationship Specialty Start Date End Date Spencer Teague MD [address] [place] [id number] PCP - General Family Medicine 04/26/16 documented as of this encounter
== END 2023-03-09 11:16 | disposition home or self-care (01) ==
LOC: 3E 08:51 → ASU 08:51

== ENCOUNTER 2024-02-21 08:20 | Observation (INO) ==
--- NOTE | 2024-01-20 16:22 | PAT Medication Instructions ---
Medication Instructions Date of Service January 20, 2024 Home Medications Medication Instructions Recorded Mari Kelly #1 ea 02/07/23 ascorbic acid (vitamin C) 1,000 mg tablet (Vitamin C) 1 g PO QAM lisinopril 20 mg-hydrochlorothiazide 12.5 mg tablet (Zestoretic) 1 tab PO QAM cholecalciferol (vitamin D3) 25 mcg (1,000 unit) capsule (Vitamin D3) 25 mcg PO QAM Medical Marijuana 1 dose topical UD PRN Pain albuterol sulfate 90 mcg/actuation aerosol inhaler 1 inh inhalation QID PRN sob potassium 99 mg tablet 99 mg PO QAM semaglutide 0.25 mg or 0.5 mg (2 mg/3 mL) subcutaneous pen injector (Ozempic) 0.5 mg subcut WK STOP taking 24 hours before surgery Medical Marijuana 1 dose topical UD PRN Pain DO NOT take the morning of surgery ascorbic acid (vitamin C) 1,000 mg tablet (Vitamin C) 1 g PO QAM lisinopril 20 mg-hydrochlorothiazide 12.5 mg tablet (Zestoretic) 1 tab PO QAM cholecalciferol (vitamin D3) 25 mcg (1,000 unit) capsule (Vitamin D3) 25 mcg PO QAM potassium 99 mg tablet 99 mg PO QAM Take morning of surgery With a small sip of water, OTHERWISE NOTHING TO EAT OR DRINK AFTER MIDNIGHT: albuterol sulfate 90 mcg/actuation aerosol inhaler 1 inh inhalation QID PRN sob (use if needed; please bring with you to hospital day of surgery if possible) Take evening before surgery albuterol sulfate 90 mcg/actuation aerosol inhaler 1 inh inhalation QID PRN sob (if needed) STOP taking 7 days before surgery semaglutide 0.25 mg or 0.5 mg (2 mg/3 mL) subcutaneous pen injector (Ozempic) 0.5 mg subcut WK Other Notes If you have any questions please call us at [phone] or [phone] or [phone] or [phone]
--- NOTE | 2024-01-30 10:49 | Anesthesiology Consultation ---
Date of Service January 30, 2024 Assessment & Plan (1) Encounter for pre-operative examination: - check BSG am DOS. - semaglutide instructions: Patient informed at PAT visit to stop 7 days prior to surgery-voiced understanding. - Outpatient joint assessment: Patient is currently scheduled for inpatient path way. If re-evaluated and patient/surgeon requests outpatient pathway, patient is not acceptable candidate for outpatient joint program from anesthesia standpoint. Chart Review Chart Review: Acceptable Risk for Surgery and Patient seen in Pre Admission Testing Teaching & Discussion Pre-Anesthesia Teaching/Discussion Notes: Instructed NPO after midnight before surgery, except medications with 15 cc of water. Medication instructions provided according to the [facility] guidelines. History Surgery Operation Date: 02/21/24 07:00 Proposed Procedures p Right Total Knee Arthroplasty - Joseph Espinoza MD Height/Weight Height: 6 ft Weight: 176.3 kg Allergies Allergy/AdvReac Type Severity Reaction Status Date / Time morphine Allergy Intermediate Headache, Verified 01/16/24 15:04 hives Medications Home Medications Medication Instructions Recorded Confirmed Last Taken ascorbic acid (vitamin C) 1,000 mg 1 g PO QAM 06/17/20 01/16/24 03/08/23 07:00 tablet (Vitamin C) lisinopril 20 1 tab PO QAM 06/17/20 01/16/24 03/08/23 07:00 mg-hydrochlorothiazide 12.5 mg tablet (Zestoretic) cholecalciferol (vitamin D3) 25 25 mcg PO QAM 02/20/21 01/16/24 03/08/23 07:00 mcg (1,000 unit) capsule (Vitamin D3) Wheeled Walker #1 ea 02/07/23 07/04/23 Unknown Medical Marijuana 1 dose topical UD PRN Pain 02/08/23 01/16/24 Unknown albuterol sulfate 90 mcg/actuation 1 inh inhalation QID PRN sob 01/16/24 01/16/24 Unknown aerosol inhaler potassium 99 mg tablet 99 mg PO QAM 01/16/24 01/16/24 Unknown semaglutide 0.25 mg or 0.5 mg (2 0.5 mg subcut WK 01/16/24 01/16/24 Unknown mg/3 mL) subcutaneous pen injector (Ozempic) Past Medical History Medical History (Updated 01/30/24 @ 11:02 by Vidya Ortega PA-C) Asthma controlled, stable per pt; last albuterol inhaler use several months ago Bulging lumbar disc History of COVID-19 x 2 most recently 2022; mild symptoms-denies hospitalization-persistent dyspnea on exertion Hypertension controlled, stable per pt Morbid obesity Prediabetes Sleep-disordered breathing snoring and witnessed apneas reported by per pt; denies sleep study Patient denies h/o stroke, seizures, heart attack, heart failure, blood clots/DVTs or blood transfusions. Exercise / Class Metabolic Activity II 4-5 Yardwork/Stairs/Walk up hill (shortness of breath with one flight of stairs ongoing since second COVID illness last year-denies change or worsening- denies chest discomfort with one flight of stairs) Past Family History Family History Other No family history of adverse response to anesthesia Past Surgical History Surgical History (Updated 01/30/24 @ 11:00 by Vidya Ortega PA-C) H/O ankle fusion left History of arthroscopic surgery of shoulder R/L 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 History of arthroscopy Right knee History of colonoscopy History of herniorrhaphy Abdominal History of total knee replacement left [place] teeth removed Past Anesthesia History No Family Hx of Anesthesia Complications and Other (see above) History of PONV No Hx of PONV and No Hx of Motion Sickness Social History Smoking Status: Former smoker tobacco type: cigarettes Do You Dip or Chew Tobacco: No Smoking End Date: 2021 Hx Alcohol Use: Yes Alcohol type: wine and hard liquor alcohol intake frequency: a few times a month Hx Substance Use: No substance use type: marijuana (Medical marijuana- previous topical PRN (no recent use)) Review of Systems Rare reflux. Patient denies chest pain, fever, chills, cough, wheezing, or palpitations. Physical Exam Vital Signs Vitals BP 128/80 P 77 TEMP 98.2 SP02 96% on RA RESP 18 Physical Patient resting comfortably in chair in no acute distress, alert and oriented, responding appropriately throughout visit Short thick neck Full cervical extension range of motion without pain TMD < 3finger breadths Mallampati Score 3 Dentition: several implants and caps/crowns, denies chipped or loose teeth, implants or bridges Lungs: normal respiratory effort. Good air movement, clear throughout to auscultation, no adventitious breath sounds Cardiac: regular rate and rhythm, no murmurs noted Carotid arteries: negative bruit bilat Lab Results Anesthesia Preop Results Results Anesthesia Widget: WBC 6.85 K/ul (4.8-10.8) 01/30/24 Hgb 14.5 g/dl (14.0-18.0) 01/30/24 Hct 45.6 % (42.0-52.0) 01/30/24 Plt 150 K/uL (130-400) 01/30/24 Na 141 mmol/L (136-145) 01/30/24 K 4.2 mmol/L (3.5-5.1) 01/30/24 Cl 102 mmol/L (98-107) 01/30/24 CO2 34 mmol/L (21-32) H 01/30/24 BUN 16 mg/dl (6-23) 01/30/24 Creat 0.86 mg/dl (0.6-1.4) 01/30/24 Glucose Level 104 mg/dl (70-99(Fasting)) H 01/30/24 PT 10.9 Seconds (9.0-12.0) 01/30/24 PTT 27 Seconds (21-31) 01/30/24 INR 1.0 (0.9-1.1) 01/30/24 HA1c 7.0 % (4.5-5.6) H 01/30/24 Blood Type A Positive 01/30/24 Antibody Screen NEGATIVE 01/30/24 Testing Electrocardiogram Date: 01/30/24 NSR, rate 73 bpm Chest X-Ray Date: 01/30/24 No active disease in the chest.
--- NOTE | 2024-02-12 12:04 | History & Physical Report ---
Date of Service February 12, 2024 Assessment & Plan (1) Right knee DJD: 63-year-old fairly large gentleman status post a left knee replacement with advanced right knee DJD. Is failed conservative treatment. He is happy with his left knee would like to have his right knee fixed. Plan: We are going to take him to the operating room do a right total knee replacement but the risks Mente this procedure explained. The patient understands and desires to proceed. It is likely him going to put a stem in his tibia due to his large size. Will plan on aspirin for DVT prophylaxis. He is planned to be discharged home using [facility] program. (2) Status post left knee replacement: (3) Obesity: (4) HTN (hypertension): History of Present Illness Chief Complaint: . Persistent right knee pain and discomfort. Primary Care Provider: Spencer Teague MD . The patient is a 63-year-old gentleman now about 11 months out from a left knee replacement. He continues to be bothered by right knee pain discomfort. He has been through extensive conservative treatment over the years which would become less successful. He most recently had a shot in his knee which helped him for couple days and that is about it. Is fairly avid golfer and having difficulty doing this due to his right knee pain. The left knee has been doing pretty well. He does have history of knee arthroscopy on this side years ago. Allergies Allergy/AdvReac Type Severity Reaction Status Date / Time morphine Allergy Intermediate Headache, Verified 01/16/24 15:04 hives Home Medications Medication Instructions Recorded Confirmed Type ascorbic acid (vitamin C) 1,000 mg 1 g PO QAM 06/17/20 01/16/24 History tablet (Vitamin C) lisinopril 20 1 tab PO QAM 06/17/20 01/16/24 History mg-hydrochlorothiazide 12.5 mg tablet (Zestoretic) cholecalciferol (vitamin D3) 25 25 mcg PO QAM 02/20/21 01/16/24 History mcg (1,000 unit) capsule (Vitamin D3) Wheeled Walker #1 ea 02/07/23 07/04/23 Rx Medical Marijuana 1 dose topical UD PRN Pain 02/08/23 01/16/24 History albuterol sulfate 90 mcg/actuation 1 inh inhalation QID PRN sob 01/16/24 01/16/24 History aerosol inhaler potassium 99 mg tablet 99 mg PO QAM 01/16/24 01/16/24 History semaglutide 0.25 mg or 0.5 mg (2 0.5 mg subcut WK 01/16/24 01/16/24 History mg/3 mL) subcutaneous pen injector (Ozempic) Past Med/Surg History Problem List (Updated 02/12/24 @ 12:03 by Joseph Espinoza MD) Right knee DJD Tendinopathy of rotator cuff Subacromial bursitis Full thickness rotator cuff tear Osteoarthritis of right shoulder Status post left knee replacement H/O ankle fusion Left Degenerative arthritis of knee, bilateral Obesity (Chronic) HTN (hypertension) (Chronic) Medical History Sleep-disordered breathing snoring and witnessed apneas reported by per pt; denies sleep study History of COVID-19 x 2 most recently 2022; mild symptoms-denies hospitalization-persistent dyspnea on exertion Asthma controlled, stable per pt; last albuterol inhaler use several months ago Prediabetes Morbid obesity Bulging lumbar disc Hypertension controlled, stable per pt Surgical History H/O ankle fusion left History of total knee replacement left History of arthroscopic surgery of shoulder R/L 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 [facility] [place] History of arthroscopy Right knee History of colonoscopy History of herniorrhaphy Abdominal [place] teeth removed Family History Other No family history of adverse response to anesthesia Social History Smoking Status: Former smoker Tobacco Type: Cigarettes Second Hand Exposure: No; Do You Dip or Chew Tobacco: No; Hx Alcohol Use: Yes Alcohol type: wine and hard liquor Hx Substance Use: No Preferred Language: Turkish Communication Ability: Effective Reject Opener And Filler Required: No Beliefs That Will Affect Care: None Current Living Situation: Family Current Living Situation Comment: and 3 grandkids Feels Safe at Home: Yes Assistive Devices: None Review of Systems All systems reviewed & are unremarkable except as noted in HPI & below. Physical Exam . Physical examination reveals a large middle-age male. Looks to be in reasonable health. Examination of the right knee reveals a patient ambulates independently. He is got a well-healed portal sites around the knee. Got varus alignment to his knee. Moderate-sized knee joint effusion. Tender mostly medially. Range of motion is 5-1 20. No instability. No particular pain with hip motion. Examination left knee reveals a well-healed incision. Got anatomic alignment to the knee. Range of motion is 0-1 20. Good straight leg raise. Constitutional WD/WN, vitals as above Neck trachea midline, no thyromegaly Respiratory normal respiratory effort, lungs clear to auscultation Cardiovascular RRR, no murmur, no edema Gastrointestinal (Abdomen) normal bowel sounds, soft, nontender, no hepatosplenomegaly Results & Data Results & Data Laboratory Results . Diagnostic Findings . X-rays of both knees were reviewed. X-rays show advanced right knee DJD. Got complete loss of his medial joint space. Got some chondrocalcinosis. The left knee replacement looks to be in good position without problems. PG Care Time/CCT Total # of Minutes Spent Total Time Spent with Patient: Total time spent is greater than 50% in coordination of care (as documented) at patient's floor/unit and/or counseling patient: Coding Level of Care Code None Diagnoses Right knee DJD M17.11 Status post left knee replacement Z96.652 Obesity E66.9 HTN (hypertension) I10
[~2024-02-21 08:20] MED LIST changes: -ACETAMINOPHEN 500 MG TAB PO SCH; -BUPIVACAINE LIPOSOME/PF 266 MG, BUPIVACAINE/EPINEPHRINE 50 ML, SODIUM CHLORIDE 0.9% PF ... INFIL SCH; -CeleBREX 200 MG CAP PO SCH; -FAMOTIDINE 20 MG TAB PO SCH; -LR 500ML BOLUS, THEN 15ML/HR IV SCH; -LR 60ML/HR IV SCH; -METOCLOPRAMIDE HCL 10 MG TABLET PO SCH; -Scopolamine 1 MG TDSY TD SCH; -TRANEXAMIC ACID 1,000 MG **IV Intra-op IV SCH; -dexAMETHasone**PF** 10 MG/ML VIAL IV SCH
--- NOTE | 2024-02-21 09:01 | History & Physical Bridge Note ---
Date of Service February 21, 2024 History & Physical Bridge Note I have examined the patient, reviewed the History & Physical and in the interval since the performance of the History & Physical I have noted the following changes of clinical significance: no changes noted
[2024-02-21] MEDS: LR 60ML/HR IV SCH (09:14)
[2024-02-21] MEDS: LR 500ML BOLUS, THEN 15ML/HR IV SCH (09:14)
[2024-02-21] MEDS: FAMOTIDINE 20 MG TAB PO SCH (09:15)
[2024-02-21] MEDS: CeleBREX 200 MG CAP PO SCH (09:15)
[2024-02-21] MEDS: METOCLOPRAMIDE HCL 10 MG TABLET PO SCH (09:15)
[2024-02-21] MEDS: Scopolamine 1 MG TDSY TD SCH (09:15)
[2024-02-21] MEDS: ACETAMINOPHEN 500 MG TAB PO SCH ×2 (09:15→15:44)
[2024-02-21] MEDS: dexAMETHasone**PF** 10 MG/ML VIAL IV SCH (09:16)
[2024-02-21] MEDS: hydrALAZINE HCL 20 MG/ML VIAL IV ONE (09:37)
[2024-02-21] MEDS ORDERED: MIDAZOLAM HCL 1 MG/ML 2ML VIAL ONE ×2 (09:44→12:01)
[2024-02-21] MEDS: hydrALAZINE HCL 20 MG/ML VIAL IV STA (10:07)
[2024-02-21] MEDS ORDERED: PROPOFOL IV EMULSION 10 MG/ML 20 ML VIAL IV ONE ×5 (10:51→13:30)
[2024-02-21] MEDS ORDERED: LIDOCAINE 2% 2 ML VIAL/AMP(20MG/ML) INFIL ONE (10:51)
[2024-02-21] MEDS: ceFAZolin 3000MG 3,000 MG/72.5 ML BAG IV SCH (11:19)
[2024-02-21] MEDS ORDERED: PHENYLEPHRINE HCL 10 MG/ML VIAL ONE ×2 (11:33→13:31)
[2024-02-21] MEDS: ORTHO JOINT ANESTHETIC ONE (11:59)
[2024-02-21] MEDS: TRANEXAMIC ACID 1,000 MG **IV Intra-op IV SCH (12:53)
[2024-02-21] MEDS: ROPIV 0.5% 246mg, Ketorolac 30mg, EPINEPHrine 0.5mg in NSS INFIL SCH (13:05)
--- NOTE | 2024-02-21 13:25 | Operative Report ---
PG Post Operative Report Pre & Post Diagnosis Operation Date: 02/21/24 10:40 Pre-Op Diagnosis: Knee Right Degenerative Joint Disease Post-Op Diagnosis: Knee Right Degenerative Joint Disease I identified the patient and participated in the time-out.: Yes Procedure Operation Date: 02/21/24 10:40 Actual Procedures p Right Total Knee Arthroplasty(Right) - Joseph Espinoza MD Surgeon Joseph Espinoza MD [employer] Jacky Cooper PA-C Estimated Blood Loss 50 Findings Consistent with Post-Op Diagnosis Specimens Right knee sent for pathology. Anesthesia Type Spinal MAC Complications none Disposition Accompanied Patient To Recovery: No Indications Patient is a 63-year-old morbidly obese gentleman whose had a long history and progressive history of bilateral knee pain discomfort describes gotten worse over time. He failed conservative measures. He had his left knee replaced about a year ago and is recovered nicely from this. He continues to be bothered by limiting right knee pain. He failed conservative measures. He elected pro ceed with right total knee arthroplasty. We did place a tibial stem due to this patient's large size. Description of Procedure Operative implants consist of: 1. Biomet Vanguard size 72.5 right posterior stabilized femoral component. 2. Biomet Vanguard 360 size 79 tibial tray with a 15 x 80 mm offset stem with a 5 mm offset and small cruciate wing. 3. 10 mm posterior stabilized polyethylene insert. 4. 31 x 8 all poly patella. The patient was taken the op room, identified, placed on the operating table in the supine position. All conductors were appropriately padded. IV antibiotics fibra anesthesia team. A spinal anesthetic and adductor canal block had provided holding area. A right thigh turn was then placed. The right lower extremity was then prepped and draped in usual sterile fashion. The right leg was elevated and exsanguinated with use of an Esmarch and the tourniquet was placed at 300 mmHg. An anterior approach to the right knee was then performed to longitudinal incision centered over the patella. Sharp dissection Through subcutaneous tissue down the extensor mechanism. Medial parapatellar arthrotomy incision was made. Some subperiosteal dissection was carried out medially. The fat pad was dissected from Neath patella tendon. Lateral patellofemoral ligament was released. Patella subluxated laterally and the knee was flexed. The osteophytes taken off distal femur to the ACL PCL were then released from distal femur the tibia subluxated anteriorly. The tibial eminence was then resected. I then used the IM entry drill to enter the tibia. We reamed up to a size 15 and left [address] in [address]. A proximal tibial cutting block was attached to the IM marina and the proximal tibial cut was made remove about a millimeter bone from most deficient aspect medial tibial plateau. The tibia was then sized to a size 79. Some osteophytes taken off medial and posterior medially. We then prepared the tibia for 15 mm x 80 mm offset stem with a 5 mm offset and a small cruciate wing. This was then assembled and fit within the tibia nicely. Attention end of the femur. The distal femur was entered with a sharp drill. Intramedullary canal was suction. A right 6 degree valgus cutting guide was placed. This femoral cutting block was pinned in place. This femoral cut was made take an additional 3 mm off the distal femur. The femur was then sized to a size 72.5. The AP cutting block was pinned parallel to the epicondylar axis which was 3 degrees of external rotation. The anterior cut, anterior chamfer, posterior cut, posterior chamfer cuts were made. The box cutting guide was placed and adjusted slightly laterally. The box cut was made. The knee was flexed. The remnants of the medial and lateral menisci were excised. The osteophytes taken off the posterior aspect the femur. Trial femoral component was then placed. Then trialed the knee and the 10 mm insert fit most appropriately. Attention drawn the patella. The patella was cleaned of all soft tissues. Patella thickness measured 22 mm in thickness was cut down to 14. Was sized to a size 31 patella. The lug holes were drilled for the 31 patella. The lateral osteophytes removed. Patella button was placed. Knee was taken through range of motion and the patella tracked nicely with no thumbs test. Attention drawn to placing permanent components. All trial components removed. Bone plug was placed into this femur limit blood loss. A double batch of [place]os G cement was mixed. A Biomet Vanguard size 72.5 right posterior stabilized femoral component, a size 79 tibial tray with a 80 x 15 mm offset stem with a 5 mm offset and small cruciate wing was placed followed by a 10 mm post stabilized polyethylene insert, and a 31 x 8 all poly patella. The knee was brought out in full extension till cement hardened. Final cement check was then performed. The pericapsular tissues were injected with total of 100 cc of Ortho mix. Patient did receive 1 g of tranexamic acid. The tourniquet was then let down for final tourniquet time 75 minutes. Hemostasis assured use electrocautery. Extensor Meclomen closed with combina tion 1 PDS suture Vicryl suture in [id number] fashion. Extensor Meclomen checked found to be intact with subcutaneous tissue then closed with 2 Dexon suture in a buried interrupted fashion skin was closed skin yanick. Leg was then cleaned and dried a sterile dressing was Xeroform, 4 fours, sterile cast padding, sterile ABD pad, Azar bandage were applied. The patient then transferred to the recovery room in stable condition. Patient tolerated procedure well and there were no complications. Jacky Cooper, my physician paraprofessional education assistant, was present for the entire procedure. His assistance was essential and required for appropriate patient positioning, prepping and draping, surgical exposure, performing the technical details of the operation, placement the implants, closure of the wound, and placement of the sterile bandage. I attest to the content of the Intraoperative Record and any orders documented therein. Any exceptions are noted below.
[2024-02-21] MEDS ORDERED: PHENYLEPHRINE 100MCG/ML 5ML SYR ONE (13:31)
[2024-02-21] MEDS ORDERED: ePHEDrine sulfate 50 MG/5 ML SYR ONE (13:31)
[2024-02-21] MEDS: ceFAZolin 2000MG 2,000 MG/15 ML SYR IV SCH ×2 (13:50→18:06)
[2024-02-21] MEDS ORDERED: ONDANSETRON INJ 2 MG/ML 2 ML VIAL IV PRN (14:27)
[2024-02-21] MEDS ORDERED: NON-FORMULARY MEDICATION (Semaglutide [Ozempic] 0.25 mg or 0.5 mg (2 mg/3 mL) Pen Injector SQ SCH (14:27)
[2024-02-21] MEDS ORDERED: GLUCAGON FOR INJ 1 MG VIAL SQ PRN (14:27)
[2024-02-21] MEDS ORDERED: ALUMINUM/MAGNESIUM SUSP 30 ML UDC PO PRN (14:27)
[2024-02-21] MEDS ORDERED: MAGNESIUM HYDROXIDE SUSP 30 ML UDC PO PRN (14:27)
[2024-02-21] MEDS ORDERED: CARBOHYDRATES FOR HYPOGLYCEMIA PO PRN (14:27)
[2024-02-21] MEDS ORDERED: ALBUTEROL HFA 8 GM INHALER INH PRN (14:27)
[2024-02-21] MEDS ORDERED: METOCLOPRAMIDE HCL INJ 5 MG/ML 2 ML VIAL IV PRN (14:27)
[2024-02-21] MEDS ORDERED: GLUCOSE 10 TAB/TUBE PO PRN (14:27)
[2024-02-21] MEDS ORDERED: PHARMACY GLYCEMIC MGMT CONSULT PRN (14:27)
[2024-02-21] MEDS ORDERED: GLUCOSE 40% GEL 15 GM TUBE PO PRN (14:27)
[2024-02-21] MEDS ORDERED: NALOXONE HCL 0.4 MG/1 ML VIAL/CARP IV PRN (14:27)
[2024-02-21] MEDS ORDERED: bisacodyL 10 MG SUPP PR PRN (14:27)
[2024-02-21] MEDS ORDERED: TAMSULOSIN HCL 0.4 MG CAP PO PRN (14:27)
[2024-02-21] MEDS ORDERED: DEXTROSE 50% 50 ML SYRINGE IV PRN (14:27)
--- NOTE | 2024-02-21 14:59 | Anesthesiology Progress Note ---
Date of Service February 21, 2024 Anesthesia Post Procedure Vital Signs Vital Signs: Temp Pulse Resp BP Pulse Ox O2 Del Method O2 Flow Rate 02/21/24 14:10 92 H 14 121/80 96 Nasal Cannula 2 02/21/24 14:00 75 14 102/74 95 Nasal Cannula 2 02/21/24 13:50 78 16 121/80 95 Nasal Cannula 2 02/21/24 13:40 98 H 14 101/83 90 Room Air 02/21/24 13:30 92 H 20 121/94 96 Room Air 02/21/24 13:20 36.3 C L 103 H 17 111/72 97 Room Air 02/21/24 10:20 166/105 H 02/21/24 10:10 147/117 H 02/21/24 10:00 153/121 H 02/21/24 09:51 165/128 H 02/21/24 09:43 148/105 H 02/21/24 09:20 154/110 H 02/21/24 08:51 Room Air 02/21/24 08:51 36.5 C 90 20 145/113 H 95 Room Air 02/21/24 08:45 161/125 H Pain Intensity Right Knee: Pain Intensity: 5 Transfer of Care Handoff Completed per policy Notes Mental Status: alert / awake / arousable and participated in evaluation Nausea / Vomiting: adequately controlled Pain: adequately controlled Airway Patency, RR, SpO2: stable & adequate BP & HR: stable & adequate Hydration State: stable & adequate Neuraxial Anesthesia: was administered and sensory block is resolving Anesthetic Complications: no major complications apparent and Pt Satisfied with anesthetic care
--- NOTE | 2024-02-21 15:08 | Pharmacy Report ---
Pharmacy Glycemic Short Note 2 - Date of Service February 21, 2024 - Glycemic Short BSG Results (Last 24 hours): 02/21/24 08:44 POC Glucose 128 H OUTPATIENT ANTIDIABETIC REGIMEN: * Pt takes Ozempic but more for weight management per records * Last A1c was 7% on 01/30/24 ASSESSMENT: * Vicente Raman is a 63 yo M who is POD0 R.TKA. Pt's PMH includes asthma, obesity, and prediabetes for which pharmacy was consulted for to manage his glycemics. * Preop BSG was 128 today, no preop steroids given per chart but pt has IV dexamethasone ordered once for tomorrow * Will order Lantus with dosing parameters and use NovoLog stress factor of 2 PLAN FOR INPATIENT GLYCEMIC CONTROL: * Hold outpatient oral diabetes medications * Basal insulin * Lantus SC HS with parameters to give 10 units if BSG >180 and hold if BSG <180 * Bolus insulin * NovoLog per scale ACHS or Q6hrs while NPO * Goal Range: Low 110 mg/dL - High 140 mg/dL * Correction Factor: 30 mg/dL/unit * Nutritional / Prandial insulin per carb ratio of 1 unit per 10 grams CHO consumed
[2024-02-21] MEDS: KETOROLAC 30 MG/ML VIAL IV SCH (15:44)
[2024-02-21] MEDS: Scopolamine CHECK PATCH PLACEMENT SCH (15:46)
[2024-02-21] MEDS: HYDROmorphone INJ 0.5 MG/0.5 ML SYR IV PRN (15:51)
[2024-02-21] MEDS: INSULIN ASPART PER UNIT CHARGE SC SCH (16:08)
[2024-02-21] MEDS: LANTUS PER UNIT CHARGE SC ONE (16:09)
[2024-02-21] MEDS: ASCORBIC ACID 500 MG TAB PO SCH (16:36)
[2024-02-21] MEDS: oxyCODONE HCL IR 5 MG TAB (IMMEDIATE RELEASE) PO PRN (16:39)
[2024-02-21] MEDS: TRANEXAMIC ACID / 0.7% NACL 1,000 MG/100 ML BAG IV SCH (18:06)
[2024-02-21] MEDS: SENNA 8.6 MG TAB PO SCH ×2 (21:04)
[2024-02-21] MEDS: DOCUSATE SODIUM 100 MG CAP PO SCH (21:04)
[2024-02-21] MEDS: ASPIRIN 81 MG ECTAB PO SCH (21:05)
[2024-02-21] MEDS: LANTUS PER UNIT CHARGE SC SCH (21:10)
[2024-02-22 06:16] LABS: Hematocrit (blood only) 37.1 % (42.0-52.0); Hemoglobin 12.1 g/dl (14.0-18.0); Mean Corpuscular Hemoglobin 30.4 pg (25.0-34.0); Mean Corpuscular Hgb Conc 32.6 g/dL (32.0-36.0); Mean Corpuscular Volume 93.2 fL (80.0-100.0); Mean Platelet Volume 12.6 fL (9.4-12.4); Platelet Count 179 K/uL (130-400); RDW Coefficient of Variation 14.1 % (11.5-14.5); RDW Standard Deviation 48.7 fL (36.4-46.3); Red Blood Count 3.98 M/uL (4.70-6.10); White Blood Count 13.78 K/ul (4.8-10.8)
[2024-02-22 06:34] LABS: Calcium 8.8 mg/dl (8.6-10.3); Creatinine Clr Calc Pharmacy 92.6 ml/min; Potassium 4.5 mmol/L (3.5-5.1)
--- NOTE | 2024-02-22 07:01 | Orthopedic Progress Note ---
Date of Service February 22, 2024 Assessment & Plan (1) Status post right knee replacement: Plan: 63-year-old gentleman postop day 1 from right knee replacement doing pretty well. Pains controlled. He is neurologically intact. Plan: 1. DVT prophylaxis including Thiede teds, SCDs, aspirin twice a day. 2. PT/OT. Weight-bear as tolerated. Right total knee protocol. 3. Pain control. Doing okay with current pain regimen. 4. Disposition. Plan is to discharge to home after therapy this morning (2) Status post left knee replacement: (3) Obesity: (4) HTN (hypertension): Admission and Anticipated Discharge Date Admission Date: February 21, 2024 Subjective 63-year-old gentleman postop day 1 from a right knee replacement. He is doing pretty well this morning. He has been getting up and moving around. Pains controlled. No chest pain or shortness of breath. Not feeling dizzy or lightheaded. Physical Exam Physical Exam: Physical exam shows a large middle-age male. He is lying in bed looks pretty comfortable this morning. Examination of the right leg reveals the dressing to be in place but a bit disheveled. There is no signal drainage. He can dorsiflex and plantarflex his foot appropriately. He is neurologically intact. Respiratory: normal respiratory effort, lungs clear to auscultation Cardiovascular: RRR, no murmur, no edema Gastrointestinal (Abdomen): normal bowel sounds, soft, nontender, no hepatosplenomegaly Results & Data Vital Signs (Past 12 Hours) Vital Signs Temp Pulse Resp BP Pulse Ox O2 Del Method 02/22/24 03:00 36.5 C 76 18 115/79 93 Room Air 02/21/24 23:00 36.7 C 94 H 18 127/81 94 Room Air 02/21/24 19:03 36.6 C 98 H 18 149/83 H 94 Room Air Laboratory Results Hemoglobin is 12.1. Hematocrit 37.1. Electrolytes are stable.
[2024-02-22] MEDS: dexAMETHasone 10 MG in SYRINGE 0 ML IV SCH (07:52)
[2024-02-22] MEDS: CHOLECALCIFEROL 25 MCG (1000 UNITS) TAB PO SCH (07:54)
[2024-02-22] MEDS: LISINOPRIL/HCTZ 20/12.5MG 1 TAB TAB PO SCH (07:54)
[2024-02-22] MEDS: MULTIVITAMIN TAB PO SCH (07:54)
[2024-02-22] MEDS: LANTUS PER UNIT CHARGE SC ONE (08:25)
[2024-02-22] MEDS ORDERED: NON-FORMULARY MEDICATION (Ascorbic Acid (Vitamin C) [Vitamin C] 1,000 mg Tablet) PO SCH (09:00)
[2024-02-22] MEDS ORDERED: NON-FORMULARY MEDICATION (Potassium 99 mg Tablet) PO SCH (09:00)
--- NOTE | 2024-02-23 20:02 | XRay Report ---
EXAM: XR knee RT 1 or 2V routine CLINICAL HISTORY: POST OP RT KNEE SDM TECHNIQUE: X-ray images of the right knee were obtained in anteroposterior (AP) and lateral projections. COMPARISON: X-ray dated 10/04/2023. FINDINGS: There is total knee arthroplasty in place, not seen in previous X-ray Expected post-surgical changes with soft tissue swelling and soft tissue emphysema. Drainage in the surgical site. Mild knee joint effusion. Surgical clips noted at the anterior aspect of the knee. No acute fracture or dislocation. IMPRESSION: 1. Total knee arthroplasty in place with expected post-surgical changes and drainage in the surgical site. 2. Small joint effusion is noted. 3. No acute fracture or dislocation. Disclaimer: A subtle bone abnormality or fracture may not be readily apparent on X-rays, thus clinical correlation and further imaging including follow-up CT, MRI, or follow-up X-rays are advised as needed. Electronically signed by Micky Hinds 02-23-2024 8:02 PM
== END 2024-02-22 10:50 | disposition home health service (06) ==
LOC: 3N 08:20 → ASU 08:20